=== PATIENT | male | born 1995 | race Caucasian/White ===

== ENCOUNTER 2019-01-15 13:10 | Emergency (ER) | payer MEDICAID, SELFPAY ==
[2019-01-15 13:12] VITALS: BP 158/99; PULSE 102; RESP 16; TEMP 36.7; O2SAT 100; BMI 25.7
--- NOTE | 2019-01-15 13:41 | ED.DCSUM_ITS ---
- ER Visit Summary Date of Service: 01/15/19 Chief Complaint: My girlfriend has herpes History of Present Illness: The patient is a 23 M no significant past medical or surgical history. Patient states a woman that he recently had sexual relations with reportedly had a herpes outbreak since that time and he wants to be evaluated. He denies any symptoms. No rash. He denies any prior STDs. Physical Examination: Appearing young male. No acute distress. H EENT exam normal. No sores. No mouth lesions. Neck nontender. Lungs clear to auscultation. Heart regular rhythm no murmur. Abdomen soft nontender. External exam is unremarkable. Circumcised male. No skin lesions. No herpes. No rash. No inguinal lymphadenopathy. No testicular swelling or tenderness. No masses. Extremities moves all 4. Back nontender. Neurologically is awake and alert. Test Results: None Emergency Department Course and Treatment: I explained to the patient at this time he has no outbreak and currently has no signs of acute herpes. Treatment Plan: Follow-up with a doctor as needed. Practice safe sex. Disposition: Discharge Impression: Evaluation for possible STD This note was generated with [employer] dictation software. It may contain incorrect words, spelling, and punctuation that were not noted in review of the chart prior to signing ED Disposition - Plan for ED Patient: Referrals: Care Physician,No Primary [Primary Care Provider] -
--- NOTE | 2019-01-15 13:44 | ED.DEP ---
ED Disposition - Plan for ED Patient: Disposition: Home or Assisted Living Instructions: Herpes Referrals: Kaveh Pearson MD [STAFF PHYSICIAN] - As Needed Additional Instructions: Currently has no signs of either herpes or other sexually transmitted diseases.
[2019-01-15 14:19] VITALS: RESP 16
== END 2019-01-15 14:00 | disposition home or self-care (01) ==
PROVIDERS: Emergency Provider Emergency Medicine
DX: Z20.2 Contact with and (suspected) exposure to infections with a predominantly sexual mode of transmission (principal); Z72.0 Tobacco use
CPT/HCPCS: 99282

== ENCOUNTER → 2019-07-29 | Outpatient (CLI) | payer SELFPAY ==
[2019-07-29 18:38] LABS: D-Dimer Quantitative (DVT/PE) < 0.27 FEU/ug/m (0.27-0.49)
--- OUTSIDE RECORDS SUMMARY | 2019-12-05 11:57 | XMS RPT_ITS | CCD ---
:1995 External Reference #:[id number] Author Organization [facility] Care Team Providers Name Role Phone Tucker Primary Care Provider Medications Medication Name Sig Date Prescriber Location amLODIPine amLODIPine (NORVASC) 10-21-2019 Mickey (Twin) Thuan [facility] 10 mg tablet ([id number]) Indications: Essential hypertension Take 1 tablet by mouth once daily. 30 tablet 1 10/21/2019 Active amLODIPine (NORVASC) 5 09-23-2019 - Mickey (Twin) Thuan [facility] mg tablet Indications: 10-21-2019 (70553) Essential hypertension Take 1 tablet by mouth once daily. 30 tablet 1 09/23/2019 10/21/2019 Discontinued Comment: Take 1 tablet by mouth once daily. busPIRone busPIRone (BUSPAR) 5 09-23-2019 - Mickey (Twin) [facility] mg tablet Indications: 10-21-2019 Thuan (4419 5) Anxiety Take 1 tablet by mouth twice daily. 60 tablet 5 10/21/2019 Active Comment: Take 1 tablet by mouth twice daily. carbamide peroxide carbamide peroxide 09-23-2019 Mickey (Ribber) [facility] (DEBROX) 6.5 % otic Thuan (35837) solution Indications: Impacted cerumen of left ear Use 5 Drops in the left ear twice daily. 15 mL 0 09/23/2019 Active Comment: Use 5 Drops in the left ear twice daily. Omeprazole omeprazole (PRILOSEC) 20 mg 09-23-2019 Mickey (Ribber) [facility] capsule Indications: Thuan (24788) gastroesophageal reflux disease , heartburn Take 1 capsule by mouth daily before breakfast. 30 capsule 2 09/23/2019 Active Comment: Take 1 capsule by mouth roula y before breakfast. Problems Active Problems Category Problem Name Status Date Location Anxiety disorders Anxiety Active [facility] ([id number]) Essential hypertension Essential Active [facility] hypertension (20168) Headache; including Migraine without Active 10-07-2017 - [facility] migraine aura, not refractory (56916) Other gastrointestinal Heartburn Active [facility] disorders (41383) Past or Other Problems Category Problem Name Status Date Location Other circulatory Elevated Completed 08-10-2019 - [facility] disease blood-pressure reading (4419 5) without diagnosis of hypertension Results Result Name Value Range Unit Interpretation Flag Date Location progress on 2019-10 PROGRESS HNO ID: [id number] Normal 11-11-2019 [facility] Author: Christie Solomon LPN [place] ([id number]) Service: ? Author Type: ? Type: Progress Notes Filed: 11/11/2019 11:07 AM Note Text: Manual Readin/92 Pulse: 58 BP Bhavik average: 120/73 P: 59 Repeat BP Check: 117/71 P59 #1 121/69 P59 #2 117/74 P60 #3 119/72 P59 #4 116/74 P57 #5 125/77 P60 #6 Reason for blood pressure check - Last BP elevated and Medic ation adjustment Patient is: Taking medication as prescribed Yes Took medication today Yes If no, date medication last taken N/A Experiencing side effects No BP was elevated at last appt 10/21/2019. Amlodipine was increa sed to 10mg daily at that time. Tolerating medication change well. Does report that he has some returning stomach irritation since stopping the Ome prazole. Did suggest Gaviscon tablets if needed. Denies any chest pain, s hortness of breath, dizziness, or headaches. Daily caffeine use. Current everyday tobacco use. Alert and oriented. Pt has been identified by name and birthdate: Yes Allergies reviewed: Yes Latex allergy: no. Medication - prescribed and OTC reviewed and updated: Yes Do you need any prescription refills prior to your next visi t: No Health Maintenance: Reviewed and not up to date and provider notified Patient advised to continue with current medications and wou ld be contacted if any further instructions after review by PCP. Christie Solomon LPN cnpn on 2019-11-11 CNPN Telephone (INTMWS) Normal 11-11-2019 [facility] ABEL KURTZ ([id number]) 1995 [facility] Date Time Provider Department ([id number]) 11/11/19 BRENDA RODRIGUEZ During your visit today, we recorded the following informati on about you: Christie Solomon LPN 11/11/2019 11:06 AM Signed Manual Readin/92 Pulse: 58 BP Bhavik average: 120/73 P: 59 Repeat BP Check: 117/71 P59 #1 121/69 P59 #2 117/74 P60 #3 119/72 P59 #4 116/74 P57 #5 125/77 P60 #6 Reason for blood pressure check - Last BP elevated and Medication adjustment Patient is: Taking medication as prescribed Yes Took medication today Yes If no, date medication last taken N/A Experiencing side effects No BP was elevated at last appt 10/21/2019. Amlodipin e was increased to 10mg daily at that time. Tolerating medication change well. Does report that he has some returning stomach irritation since stopping the Omeprazole. Did suggest Gaviscon tablets if needed. Denies any chest pain, shortness of breath, dizziness, or headaches. Daily caffeine use. Current everyda y tobacco use. Alert and oriented. Pt has been identified by name and birthdate: Yes Allergies reviewed: Yes Latex allergy: no. Medication - prescribed and OTC reviewed and updated: Yes Do you need any prescription refills prior to your next visi t: No Health Maintenance: Reviewed and not up to date and provider notified Patient advised to continue with current medications and would be contacted if any further instructions after review by PCP. Christie RODRIGUEZ MD 11/12/2019 2:04 PM Signed bp is good, cont the same medication. Mayelin Hsu Cma 11/12/2019 3:41 PM Signed Left message for patient to call office back and to ask to speak with a nurse. Mayelin Blanton LPN 11/15/2019 5:00 PM Signed Patient notified. Mendoza Blanton LPN Allergies As of Date: 11/11/2019 (No Known Allergies) Date Reviewed: 11/11/2019 Reviewed by: Christie Solomon LPN - Fully Assessed Reason for Visit: Blood Pressure Check [195] Prescriptions as of 11/11/2019 Sig: BUSPIRONE 5 MG TABLET Take 1 tablet by mouth twice * AMLODIPINE 10 MG TABLET Take 1 tablet by mouth once d* OMEPRAZOLE 20 MG CAPSULE,ALINA* Take 1 capsule by mouth daily * Patient not taking: Reported on 11/11/2019 DEBROX 6.5 % EAR DROPS Use 5 Drops in the left ear t* Problem List As Of Date 11/11/2019 Noted Resolved Migraine without aura, not intractable, with st*10/07/2017 Chronic migraine [G43.709] 12/15/2017 Chronic daily headache [R51] 12/15/2017 Elevated blood-pressure reading, without diagno*08/10/2019 Persistent headaches [R51] 08/10/2019 Encounter Status:Closed by MENDOZA BLANTON LPN on 11/15/19 cnnurse on [facility] Nurse Visit (FAMPWS) Normal 0 [place] [facility] ABEL KURTZ ([id number]) 1995 [facility] Date Time Provider Department ([id number]) 11/11/19 11:00 AM [place] NURSE FAMPWS During your visit today, we recorded the following informati on about you: Pulse Blood pressure 59/minute 120/73 Christie Solomon LPN 11/11/2019 11:07 AM Signed Manual Readin/92 Pulse: 58 BP Bhavik average: 120/73 P: 59 Repeat BP Check: 117/71 P59 #1 121/69 P59 #2 117/74 P60 #3 119/72 P59 #4 116/74 P57 #5 125/77 P60 #6 Reason for blood pressure check - Last BP elevated and Medication adjustment Patient is: Taking medication as prescribed Yes Took medication today Yes If no, date medication last taken N/A Experiencing side effects No BP was elevated at last appt 10/21/2019. Amlodipin e was increased to 10mg daily at that time. Tolerating medication change well. Does report that he has some returning stomach irritation since stopping the Omeprazole. Did suggest Gaviscon tablets if needed. Denies any chest pain, shortness of breath, dizziness, or headaches. Daily caffeine use. Current everyda y tobacco use. Alert and oriented. Pt has been identified by name and birthdate: Yes Allergies reviewed: Yes Latex allergy: no. Medication - prescribed and OTC reviewed and updated: Yes Do you need any prescription refills prior to your next visi t: No Health Maintenance: Reviewed and not up to date and provider notified Patient advised to continue with current medications and would be contacted if any further instructions after review by PCP. Christie Solomon LPN Referring Provider: MICKEY ALBARRAN ([employer]ET SAL[employer] SUPERVISOR) [[id number]] Allergies As of Date: 11/11/2019 (No Known Allergies) Date Reviewed: 11/11/2019 Reviewed by: Christie Solomon LPN - Fully Assessed Reason for Visit: Blood Pressure Check [195] Primary Visit Diagnosis:Hypertension, essential [I10] Prescriptions as of 11/11/2019 Sig: BUSPIRONE 5 MG TABLET Take 1 tablet by mouth twice * AMLODIPINE 10 MG TABLET Take 1 tablet by mouth once d* DEBROX 6.5 % EAR DROPS Use 5 Drops in the left ear t* OMEPRAZOLE 20 MG CAPSULE,ALINA* Take 1 capsule by mouth daily * Patient not taking: Reported on 11/11/2019 Problem List As Of Date 11/11/2019 Noted Resolved Migraine without aura, not intractable, with st*10/07/2017 Chronic migraine [G43.709] 12/15/2017 Chronic daily headache [R51] 12/15/2017 Elevated blood-pressure reading, without diagno*08/10/2019 Persistent headaches [R51] 08/10/2019 Encounter Status:Closed by CHRISTIE SOLOMON LPN on 11/11/19 progress on 2019-10 PROGRESS HNO ID: [id number] Normal 10-21-2019 [facility] Author: Mickey (Ribber) Thuan [place] ([id number]) Service: ? Author Type: Nurse Practitioner Type: Progress Notes Filed: 10/21/2019 3:25 PM Note Text: CC: Patient presents with: Follow Up: medication follow up HPI Abel Kurtz is a 23 year old male who presents today for r echeck BP and medication follow up. HTN: Compliant with and tolerating amlodipine. Denies headac hes, chest pain or edema. Cut out energy drinks. Watching salt intake. No regular exercise. BP remains mildly elevated today. Anxiety: Started on Buspar ~1 month ago after noting feeling anxious all day with intermittent chest pains and SOB. Today he reports symptoms are improved or resolved. No longer experiencing chest pain. Sle ep is described as good. GERD: During our last visit patient complained of abdominal burning, started on omeprazole. Today he reports symptoms have resolv ed with medication. Note he eliminated caffeine/energy drinks as wel l. REVIEW OF SYSTEMS General: no change in appetite HEENT: no frequent or significant headaches Cardiovascular: no chest pain, no chest pressure and no palp itations GI: No nausea, vomiting, or diarrhea and No heartburn or ref lux symptoms Psych: Positive for anxiety: see HPI See HPI PAST MEDICAL HISTORY Diagnosis Date - Chronic daily headache - HTN (hypertension) PAST SURGICAL HISTORY Procedure Laterality Date - NONE ALLERGIES Patient has no known allergies. MEDICATIONS amLODIPine (NORVASC) 5 mg tablet Take 1 tablet by mouth once daily. busPIRone (BUSPAR) 5 mg tablet Take 1 tablet by mouth twice daily. omeprazole (PRILOSEC) 20 mg capsule Take 1 capsule by mouth daily before breakfast. carbamide peroxide (DEBROX) 6.5 % otic solution Use 5 Drops in the left ear twice daily. FAMILY HISTORY Problem Relation Age of Onset - Headache Father Occasional headaches - Hypertension Father - Hypertension Mother - Headache Sister Jayden, IH with surgery - No Known Problems Brother - No Known Problems Maternal Grandmother - Hypertension Maternal Grandfather - No Known Problems Paternal Grandmother - No Known Problems Paternal Grandfather - No Known Problems Brother Social History Tobacco Use - Smoking status: Current Every Day Smoker Packs/day: 0.50 Types: Cigarettes - Smokeless tobacco: Never Used Substance Use Topics - Alcohol use: Yes Frequency: Monthly or less Drinks per session: 5 or 6 Binge frequency: Less than monthly Comment: RARE - Drug use: Yes Types: Marijuana Comment: MJ occasionally PHYSICAL EXAM BP (P) 140/84 Pulse (P) 80 Temp (P) 36.2 ?C (97.1 ?F) (T emporal) Resp (P) 16 Wt (P) 93 kg (205 lb) SpO2 (P) 98% BMI (P) 28.59 kg/m? General Appearance: well appearing, in no acute distress, al ert Pysch: mood and affect broad and appropriate Skin: Skin color, texture, turgor normal for age; Head: normocephalic, atraumatic Lungs: Lungs clear to auscultation. No wheezing, rhonchi, ra les. Heart: RRR without murmur, gallop, or rubs. No ectopy HPV VACCINE(1 - Male 2-dose series) due on 2004 BP CONTROLLED (<130/80) due on 10/29/2011 INFLUENZA(1) due on 10/19/2019 DTAP,TDAP,TD(1 - Tdap) due on 09/22/2020 ONE PNEUMOVAX PRIOR TO AGE 65 due on 09/22/2020 ANNUAL PCP TEAM CHRONIC DISEASE VISIT due on 09/22/2020 MENINGOCOCCAL CONJUGATE Completed HEPATITIS C SCREENING Completed HIV SCREENING Completed ASSESSMENT/PLAN: 1. Essential hypertension - ICD9: 401.9, ICD10: I10 (primary diagnosis) - suboptimal control - Increase amlodipine (Norvasc) - Encouraged dietary sodium restriction/DASH diet - Recommended regular aerobic exercise. - Follow up in 1 month for BP recheck. - Goal of BP <130/80 - Recommended no refined sugar, low refined starch, healthy oil intake (olive oil), healthy protein (fish) along the lines of the [place] edit[place] diet. - AMLODIPINE 10 MG TABLET 2. Heartburn - ICD9: 787.1, ICD10: R12 - Symptoms resolved with current treatment - Continue omeprazole for total of 3 months, contact office for recurrent symptoms 3. Anxiety - ICD9: 300.00, ICD10: F41.9 - Stable - Continue current medications - Follow up in 1 year, sooner for new or worsening symptoms - BUSPIRONE 5 MG TABLET Prescription instructions reviewed with patient as applicabl e. Potential red flag symptoms discussed with the patient. Reviewed appro priate action plan to take if red flag symptoms occur. Patient agreeable t o treatment plan. SWAPNA Alva on 2019-10-21 CNOV Office Visit (INTMWS) Normal 10-21-19 20 [place] [facility] ABEL KURTZ ([id number]) 1995 [place] Date Time Provider Department ([id number]) 10/21/19 3:00 PM MICKEY ALBARRAN (T[employer]ET SALES SUPERVISOR) INTMWS During your visit today, we recorded the following informati on about you: Blood pressure 130/90 Mickey Albarran APRN.CNP 10/21/2019 3:25 PM Signed CC: Patient presents with: Follow Up: medication follow up HPI Abel Sharee Jerardo is a 23 year old male who presents today for r [facility] BP and medication follow up. HTN: Compliant with and tolerating amlod ipine. Denies headaches, chest pain or edema. Cut out energy drinks. Watching salt intake. No reg ular exercise. BP remains mildly elevated today. Anxiety: Started on Buspar ~1 month ago after noting f eeling anxious all day with intermittent chest pains and SOB. Today he reports symptoms are improved or resolved. No longer experiencing chest pain. Sleep is d escribed as good. GERD: During our last visit patient complained of abdominal burning, started on omeprazole. Today he reports symptoms have resolved wi th medication. Note he eliminated caffeine/energy drinks as well. REVIEW OF SYSTEMS General: no change in appetite HEENT: no frequent or significant headaches Cardiovascular: no chest pain, no chest pressure and no palp itations GI: No nausea, vomiting, or diarrhea and No heartburn or ref lux symptoms Psych: Positive for anxiety: see HPI See HPI PAST MEDICAL HISTORY Diagnosis Date - Chronic daily headache - HTN (hypertension) PAST SURGICAL HISTORY Procedure Laterality Date - NONE ALLERGIES Patient has no known allergies. MEDICATIONS amLODIPine (NORVASC) 5 mg tablet Take 1 tablet by mouth once daily. busPIRone (BUSPAR) 5 mg tablet Take 1 tablet by mouth twice daily. omeprazole (PRILOSEC) 20 mg capsule Take 1 capsule by mouth daily before breakfast. carbamide peroxide (DEBROX) 6.5 % otic solution Use 5 Drop s in the left ear twice daily. FAMILY HISTORY Problem Relation Age of Onset - Headache Father Occasional headaches - Hypertension Father - Hypertension Mother - Headache Sister Jayden IH with surgery - No Known Problems Brother - No Known Problems Maternal Grandmother - Hypertension Maternal Grandfather - No Known Problems Paternal Grandmother - No Known Problems Paternal Grandfather - No Known Problems Brother Social History Tobacco Use - Smoking status: Current Every Day Smoker Packs/day: 0.50 Types: Cigarettes - Smokeless tobacco: Never Used Substance Use Topics - Alcohol use: Yes Frequency: Monthly or less Drinks per session: 5 or 6 Binge frequency: Less than monthly Comment: RARE - Drug use: Yes Types: Marijuana Comment: MJ occasionally PHYSICAL EXAM BP (P) 140/84 Pulse (P) 80 Temp (P) 36.2 ?C (97.1 ?F) (Temporal) Resp (P) 16 Wt (P) 93 kg (205 lb) SpO2 (P) 98% BMI (P) 28.5 9 kg/m? General Appearance: well appearing, in no acute distress, al ert Pysch: mood and affect broad and appropriate Skin: Skin color, texture, turgor normal for age; Head: normocephalic, atraumatic Lungs: Lungs clear to auscultation. No wheezing, rhonchi, ra les. Heart: RRR without murmur, gallop, or rubs. No ectopy HPV VACCINE(1 - Male 2-dose series) due on 2004 BP CONTROLLED (<130/80) due on 10/29/2011 INFLUENZA(1) due on 10/19/2019 DTAP,TDAP,TD(1 - Tdap) due on 09/22/2020 ONE PNEUMOVAX PRIOR TO AGE 65 due on 09/22/2020 ANNUAL PCP TEAM CHRONIC DISEASE VISIT due on 09/22/2020 MENINGOCOCCAL CONJUGATE Completed HEPATITIS C SCREENING Completed HIV SCREENING Completed ASSESSMENT/PLAN: 1. Essential hypertension - ICD9: 401.9, ICD10: I10 (primary diagnosis) - suboptimal control - Increase amlodipine (Norvasc) - Encouraged dietary sodium restriction/DASH diet - Recommended regular aerobic exercise. - Follow up in 1 month for BP recheck. - Goal of BP <130/80 - Recommended no refined sugar, low refined star ch, healthy oil intake (olive oil), healthy protein (fish) along the lines of the Mediterr anean diet. - AMLODIPINE 10 MG TABLET 2. Heartburn - ICD9: 787.1, ICD10: R12 - Symptoms resolved with current treatment - Continue omeprazole for total of 3 months, contact office for recurrent symptoms 3. Anxiety - ICD9: 300.00, ICD10: F41.9 - Stable - Continue current medications - Follow up in 1 year, sooner for new or worsening symptoms - BUSPIRONE 5 MG TABLET Prescription instructions reviewed with patient as madie licable. Potential red flag symptoms discussed with the patient. Review ed appropriate action plan to take if red flag symptoms occur. Patient agreeable to treatm ent plan. Mickey Albarran APRN.TICKET SALES SUPERVISOR Referring Provider: MICKEY ALBARRAN ([facility]) [[id number]] Allergies As of Date: 10/21/2019 (No Known Allergies) Date Reviewed: 10/21/2019 Reviewed by: Shannan Helm Ma - Fully Assessed Reason for Visit: Follow Up [171] Cmt: medication follow up Primary Visit Diagnosis:Essential hypertension [I10] Other Visit Diagnoses:Heartburn [R12] Anxiety [F41.9] Order(s):busPIRone (BUSPAR) 5 mg tabletTake 1 tablet by mout h twice daily.Disp: 60 tabletRfl: 5 amLODIPine (NORVASC) 10 mg tabletTake 1 tablet by mouth once daily.Disp: 30 tabletRfl: 1 Prescriptions as of 10/21/2019 Sig: BUSPIRONE 5 MG TABLET Take 1 tablet by mouth twice * AMLODIPINE 10 MG TABLET Take 1 tablet by mouth once d* OMEPRAZOLE 20 MG CAPSULE,ALINA* Take 1 capsule by mouth daily * DEBROX 6.5 % EAR DROPS Use 5 Drops in the left ear t* Problem List As Of Date 10/21/2019 Noted Resolved Migraine without aura, not intractable, with st*10/07/2017 Chronic migraine [G43.709] 12/15/2017 Chronic daily headache [R51] 12/15/2017 Elevated blood-pressure reading, without diagno*08/10/2019 Persistent headaches [R51] 08/10/2019 Prescriptions ordered this encounter Disp Refills Start End BUSPIRONE 5 MG TABLET 60 t* 5 10/21/2019 Route: ORAL Sig: Take 1 tablet by mouth twice daily. AMLODIPINE 10 MG TABLET 30 t* 1 10/21/2019 Route: ORAL Sig: Take 1 tablet by mouth once daily. Medications Discontinued During This Encounter Prescriptions - amLODIPine (NORVASC) 5 mg tablet (Discontinued) Take 1 tablet by mouth once daily. - busPIRone (BUSPAR) 5 mg tablet (Discontinued) Take 1 tablet by mouth twice daily. Follow-up and Disposition History Recorded Encounter Status:Closed by MICKEY ALBARRAN CNP on 10/21/19 progress on 2019-09 PROGRESS HNO ID: [id number] Normal 09-23-2019 [facility] Author: Mickey (Twin) Thuan [place] ([id number]) Service: ? Author Type: Nurse Practitioner Type: Progress Notes Filed: 09/23/2019 2:55 PM Note Text: CC: Patient presents with: Establish Care: Establishing Care HPI Abel Kurtz is a 23 year old male who presents today to [facility]. Previous PCP: none Medical hx significant for HTN. HTN: started on amlodipine ~5-6 weeks ago. Denies new/worsen ing headaches, chest pain, palpitations, SOB. Watching diet for sodium. No structured exercise. Weight stable. Does not check BP at home. Reports symptoms of anxiety since June. Feeling anxious every day, can be all day with intermittent CP and SOB. Notes relationship str essor and money stressors back in June, no longer an issue. No SI/HI. N o family hx. Last eye exam: Unknown. He was prescribed glasses/contacts b ut never started wearing Last dental exam: Unknown. HM: Tetanus at [facility]. REVIEW OF SYSTEMS General: no fevers, no chills, no recurrent infections, no c hange in energy and no significant changes in weight HEENT: no frequent or significant headaches, no visual huff es, no sinus or nasal problems. Hearing: feels hearing has declined sligh tly- doesn't Neck: no lumps, no pain and no swelling Respiratory: no cough, no wheezing, no shortness of breath Cardiovascular: no chest pain, no chest pressure, no palpita tions and no swelling GI: No nausea, vomiting, or diarrhea and lower abdominal bur margy Hematologic/Lymph: Negative for prolonged bleeding, bruising easily or swollen nodes Neurologic: No headache, weakness, numbness, tingling, verti go, dizziness, syncope. See HPI PAST MEDICAL HISTORY Diagnosis Date - Chronic daily headache PAST SURGICAL HISTORY Procedure Laterality Date - NONE ALLERGIES Patient has no known allergies. MEDICATIONS amLODIPine (NORVASC) 2.5 mg tablet Take 1 tablet by mouth on ce daily. FAMILY HISTORY Problem Relation Age of Onset - Headache Father Occasional headaches - Hypertension Father - Hypertension Mother - Headache Sister Jayden IH - No Known Problems Brother - No Known Problems Maternal Grandmother - No Known Problems Maternal Grandfather - No Known Problems Paternal Grandmother - No Known Problems Paternal Grandfather - No Known Problems Brother Social History Tobacco Use - Smoking status: Current Every Day Smoker Packs/day: 0.50 Types: Cigarettes - Smokeless tobacco: Never Used Substance Use Topics - Alcohol use: Yes Frequency: Monthly or less Drinks per session: 5 or 6 Binge frequency: Less than monthly Comment: RARE - Drug use: Yes Types: Marijuana Comment: MJ occasionally PHYSICAL EXAM BP 132/78 Pulse 78 Temp 36.6 ?C (97.8 ?F) (Temporal) R ale 16 Wt 89.8 kg (198 lb) SpO2 99% BMI 27.62 kg/m? General Appearance: well appearing, in no acute distress, al ert Pysch: mood and affect broad and appropriate Skin: Skin color, texture, turgor normal for age; Head: normocephalic, atraumatic Eyes: PERRLA, EOM's intact, conjunctiva pink and moist, no i cterus, sclera white, non-injected Ears: external ears normal to inspection and palpation, abilio ls clear, Right tympanic membrane normal. Left TM obscured by large am ount of cerumen Neck: Thyroid normal size and symmetric without palpable nod ules, No adenopathy Lungs: Lungs clear to auscultation. No wheezing, rhonchi, ra les. Heart: RRR without murmur, gallop, or rubs. No ectopy Left chest: +tenderness of left lateral ribs and anterior ri bs 8-10. Painless ROM. Skin intact Abdomen: Abdomen soft, Bowel sounds normal. No masses, organ omegaly, Positive findings: tenderness mild LLQ Bilateral Lower Extremities: no edema HPV VACCINE(1 - Male 2-dose series) due on 2004 HEPATITIS C SCREENING due on 10/29/2011 HIV SCREENING due on 10/29/2011 DTAP,TDAP,TD(1 - Tdap) due on 2012 ONE PNEUMOVAX PRIOR TO AGE 65 due on 2012 INFLUENZA(1) due on 10/19/2019 ASSESSMENT/PLAN: 1. Encounter for medical examination to establish care - ICD 9: V70.9, ICD10: Z00.00 (primary diagnosis) - Establishing with today - Recommended regular aerobic exercise. - Vaccination(s) recommended today: Prevnar, patient wishes to defer. Indicates needles/injections cause severe anxiety/panic and vomiting. - Follow up for annual exam in one year. - Strongly recommend smoking cessation 2. Heartburn - ICD9: 787.1, ICD10: R12 - Lifestyle modifications reviewed including no eating 2-3 h ours before bed, head of bed elevation, limiting caffeine, smoking cessa tion - Begin Prilosec daily x3 months - Follow up in 1 month - OMEPRAZOLE 20 MG CAPSULE,DELAYED RELEASE 3. Essential hypertension - ICD9: 401.9, ICD10: I10 - suboptimal control - Increase amlodipine (Norvasc) - Encouraged dietary sodium restriction/DASH diet - Recommended regular aerobic exercise. - Follow up in 1 month for BP recheck. - Goal of BP <130/80 - Patient counselled on smoking cessation. - AMLODIPINE 5 MG TABLET 4. Impacted cerumen of left ear - ICD9: 380.4, ICD10: H61.22 - Follow up in 2 weeks if no improvement - DEBROX 6.5 % EAR DROPS 5. Anxiety - ICD9: 300.00, ICD10: F41.9 - Discussed treatment options including medication and couns eling - Begin Bupsar as prescribed - Strongly recommend smoking cessation - BUSPIRONE 5 MG TABLET 6. Costochondritis - ICD9: 733.6, ICD10: M94.0 - NSAIDs PRN and ice to left ribs - Follow up in 1 month as planned 7. LLQ pain - ICD9: 789.04, ICD10: R10.32 Etiology unclear Differential Diagnosis includes GERD, PUD and Constipation. Previously underwent work up July 2019 which was unremarkable - Consider CT scan if no improvement - Begin treatment with Prilosec 20 mg QD - Follow up in 1 months or sooner if worsening of symptoms 8. Tobacco abuse - ICD9: 305.1, ICD10: Z72.0 - Cessation encouraged. - Physiologic and physical aspects of tobacco addiction as w ell as strategies for quitting were discussed. - Counseling was given focusing on the harmful effects of th is addiction especially given the patient's medical condition(s) which wi ll be worsened because of the chemicals in tobacco. Mickey Albarran APRN.[employer] SALES SUPERVISOR Prescription instructions reviewed with patient as applicabl e. Potential red flag symptoms discussed with the patient. Reviewed appro priate action plan to take if red flag symptoms occur. Patient agreeable t o treatment plan. cnov on 2019-09-23 CNOV Office Visit (INTMWS) Normal 09-23-[address] [place] [address] Clinic ABEL KURTZ ([id number]) 1995 [facility] Date Time Provider Department ([id number]) 09/23/19 1:40 PM MICKEY ALBARRAN ([facility]) INTMWS During your visit today, we recorded the following informati on about you: Temperature Pulse Respiration Blood pressure 97.8 degrees 78/minute 16/minute 132/78 Weight 89.8 kg Mickey Albarran APRN.CNP 09/23/2019 2:55 PM Signed CC: Patient presents with: Establish Care: Establishing Care [facility] Abel Kurtz is a 23 year old male who presents today to [facility]. Previous PCP: none Medical hx significant for HTN. HTN: started on amlodipine ~5-6 weeks ago. Denies new/worsen ing headaches, chest pain, palpitations, SOB. Watching diet for sodium. No structured exercise. Weight stable. Does not check BP at home. Reports symptoms of anxiety since June. Feeling anxious michi ry, can be all day with intermittent CP and SOB. Notes relationship stresso r and money stressors back in June, no longer an issue. No SI/HI. No fami ly hx. Last eye exam: Unknown. He was prescribed glasses/cont acts but never started wearing Last dental exam: Unknown. HM: Tetanus at [facility]. REVIEW OF SYSTEMS General: no fevers, no chill s, no recurrent infections, no change in energy and no significant changes in weight HEENT: no frequent or significant headaches, no visual mercy nges, no sinus or nasal problems. Hearing: feels hearing has declined slightly - doesn't Neck: no lumps, no pain and no swelling Respiratory: no cough, no wheezing, no shortness of breath Cardiovascular: no chest pain, no chest pressure, no palpita tions and no swelling GI: No nausea, vomiting, or diarrhea and lower abdominal bur margy Hematologic/Lymph: Negative for prolonge d bleeding, bruising easily or swollen nodes Neurologic: No headache, weakness, numbness, tingling, verti go, dizziness, syncope. See HPI PAST MEDICAL HISTORY Diagnosis Date - Chronic daily headache PAST SURGICAL HISTORY Procedure Laterality Date - NONE ALLERGIES Patient has no known allergies. MEDICATIONS amLODIPine (NORVASC) 2.5 mg tablet Take 1 tablet by mouth on ce daily. FAMILY HISTORY Problem Relation Age of Onset - Headache Father Occasional headaches - Hypertension Father - Hypertension Mother - Headache Sister Jayden IH - No Known Problems Brother - No Known Problems Maternal Grandmother - No Known Problems Maternal Grandfather - No Known Problems Paternal Grandmother - No Known Problems Paternal Grandfather - No Known Problems Brother Social History Tobacco Use - Smoking status: Current Every Day Smoker Packs/day: 0.50 Types: Cigarettes - Smokeless tobacco: Never Used Substance Use Topics - Alcohol use: Yes Frequency: Monthly or less Drinks per session: 5 or 6 Binge frequency: Less than monthly Comment: RARE - Drug use: Yes Types: Marijuana Comment: MJ occasionally PHYSICAL EXAM BP 132/78 Pulse 78 Temp 36.6 ?C (97.8 ?F) (Temporal) R ale 16 Wt 89.8 kg (198 lb) SpO2 99% BMI 27.62 kg/m? General Appearance: well appearing, in no acute distress, al ert Pysch: mood and affect broad and appropriate Skin: Skin color, texture, turgor normal for age; Head: normocephalic, atraumatic Eyes: PERRLA, EOM's intact, conjunctiva pink and moist, no i cterus, sclera white, non-injected Ears: external ears normal to inspection and palpation, ca nals clear, Right tympanic membrane normal. Left TM obscured by large amount o f cerumen Neck: Thyroid normal size an d symmetric without palpable nodules, No adenopathy Lungs: Lungs clear to auscultation. No wheezing, rhonchi, ra les. Heart: RRR without murmur, gallop, or rubs. No ectopy Left chest: +tenderness of left lateral ribs and anterior ribs 8-10. Painless ROM. Skin intact Abdomen: Abdomen soft, Bowel sounds normal. No m asses, organomegaly, Positive findings: tenderness mild LLQ Bilateral Lower Extremities: no edema HPV VACCINE(1 - Male 2-dose series) due on 2004 HEPATITIS C SCREENING due on 10/29/2011 HIV SCREENING due on 10/29/2011 DTAP,TDAP,TD(1 - Tdap) due on 2012 ONE PNEUMOVAX PRIOR TO AGE 65 due on 2012 INFLUENZA(1) due on 10/19/2019 ASSESSMENT/PLAN: 1. Encounter for medical examination to establish care - ICD9: V70.9, ICD10: Z00.00 (primary diagnosis) - Establishing with today - Recommended regular aerobic exercise. - Vaccination(s) recommended today: Prevnar, patient wishes to defer. Indicates needles/injections cause severe anxiety/panic and vomiting. - Follow up for annual exam in one year. - Strongly recommend smoking cessation 2. Heartburn - ICD9: 787.1, ICD10: R12 - Lifestyle modifications reviewed including no eating 2-3 hours before bed, head of bed elevation, limiting caffeine, smoking cessation - Begin Prilosec daily x3 months - Follow up in 1 month - OMEPRAZOLE 20 MG CAPSULE,DELAYED RELEASE 3. Essential hypertension - ICD9: 401.9, ICD10: I10 - suboptimal control - Increase amlodipine (Norvasc) - Encouraged dietary sodium restriction/DASH diet - Recommended regular aerobic exercise. - Follow up in 1 month for BP recheck. - Goal of BP <130/80 - Patient counselled on smoking cessation. - AMLODIPINE 5 MG TABLET 4. Impacted cerumen of left ear - ICD9: 380.4, ICD10: H61.22 - Follow up in 2 weeks if no improvement - DEBROX 6.5 % EAR DROPS 5. Anxiety - ICD9: 300.00, ICD10: F41.9 - Discussed treatment options including medication and couns eling - Begin Bupsar as prescribed - Strongly recommend smoking cessation - BUSPIRONE 5 MG TABLET 6. Costochondritis - ICD9: 733.6, ICD10: M94.0 - NSAIDs PRN and ice to left ribs - Follow up in 1 month as planned 7. LLQ pain - ICD9: 789.04, ICD10: R10.32 Etiology unclear Differential Diagnosis includes GERD, PUD and Constipation. Previously underwent work up July 2019 which was unremarkable - Consider CT scan if no improvement - Begin treatment with Prilosec 20 mg QD - Follow up in 1 months or sooner if worsening of symptoms 8. Tobacco abuse - ICD9: 305.1, ICD10: Z72.0 - Cessation encouraged. - Physiologic and physical aspects of tobacco ad diction as well as strategies for quitting were discussed. - Counseling was given focusing on the harmful effects of th is addiction especially given the patient's medical condition(s) which wi ll be worsened because of the chemicals in tobacco. Mickey Albarran APRN.[facility] Prescription instructions reviewed with patient as madie licable. Potential red flag symptoms discussed with the patient. Review ed appropriate action plan to take if red flag symptoms occur. Patient agreeable to treatm ent plan. Referring Provider: TAISHA GALEANO ([facility]) [[id number]] Allergies As of Date: 09/23/2019 (No Known Allergies) Date Reviewed: 09/23/2019 Reviewed by: Shannan Helm Ma - Fully Assessed Reason for Visit: Establish Care [42] Cmt: Establishing Care Primary Visit Diagnosis:Encounter for medical examination to establish care [Z00.00] Other Visit Diagnoses:Heartburn [R12] Essential hypertension [I10] Impacted cerumen of left ear [H61.22] Anxiety [F41.9] Costochondritis [M94.0] LLQ pain [R10.32] Tobacco abuse [Z72.0] Order(s):amLODIPine (NORVASC) 5 mg tabletTake 1 tablet by mo uth once daily.Disp: 30 tabletRfl: 1 busPIRone (BUSPAR) 5 mg tabletTake 1 tablet by mouth twice daily.Disp: 60 tabletRfl: 2 omeprazole (PRILOSEC) 20 mg capsuleTake 1 capsule by mouth d aily before breakfast.Disp: 30 capsuleRfl: 2 carbamide peroxide (DEBROX) 6.5 % otic solutionUse 5 Drops i n the left ear twice daily.Disp: 15 mLRfl: 0 Prescriptions as of 09/23/2019 Sig: AMLODIPINE 5 MG TABLET Take 1 tablet by mouth once d* BUSPIRONE 5 MG TABLET Take 1 tablet by mouth twice * OMEPRAZOLE 20 MG CAPSULE,ALINA* Take 1 capsule by mouth daily * DEBROX 6.5 % EAR DROPS Use 5 Drops in the left ear t* Problem List As Of Date 09/23/2019 Noted Resolved Migraine without aura, not intractable, with st*10/07/2017 Chronic migraine [G43.709] 12/15/2017 Chronic daily headache [R51] 12/15/2017 Elevated blood-pressure reading, without diagno*08/10/2019 Persistent headaches [R51] 08/10/2019 Prescriptions ordered this encounter Disp Refills Start End AMLODIPINE 5 MG TABLET 30 t* 1 09/23/2019 Route: ORAL Sig: Take 1 tablet by mouth once daily. BUSPIRONE 5 MG TABLET 60 t* 2 09/23/2019 Route: ORAL Sig: Take 1 tablet by mouth twice daily. OMEPRAZOLE 20 MG CAPSULE,DELAYED REL* 30 c* 2 09/23/2019 Route: ORAL Sig: Take 1 capsule by mouth daily before breakfast. DEBROX 6.5 % EAR DROPS 15 mL 0 09/23/2019 Route: LEFT EAR Sig: Use 5 Drops in the left ear twice daily. Medications Discontinued During This Encounter Prescriptions - amLODIPine (NORVASC) 2.5 mg tablet (Discontinued) Take 1 tablet by mouth once daily. Disposition: Return in about 4 weeks (around 10/21/2019). Follow-up and Disposition History Recorded Encounter Status:Closed by MICKEY ALBARRAN CNP on 09/23/19 obsolete on 2019-08 OBSOLETE Refill (INTMWS) Normal 08-31-2019 [facility] ABEL KURTZ ([id number]) 1995 [facility] Date Time Provider Department ([id number]) 08/31/19 TAISHA GALEANO ([facility]) INTMWS During your visit today, we recorded the following informati on about you: John Montoya Pss 08/31/2019 12:57 PM Signed Patient has been identified by name and date of : Yes Last office visit in this department: 08/10/2019 RX INSTRUCTIONS: Patient aware RX will be sent to pharmacy. No need to notify patient. Patient phones requesting refills as follows: Pending Prescriptions Disp Refills AMLODIPINE 2.5 MG TABLET 30 tablet 0 Sig: Take 1 tablet by mouth once daily. LISA: No Please review and advise. John Montoya Pss Allergies As of Date: 08/31/2019 (No Known Allergies) Date Reviewed: 08/10/2019 Reviewed by: Mayelin Hsu Quality Assurance Manager - Fully Assessed Reason for Visit: Refill Request [94] Order(s):amLODIPine (NORVASC) 2.5 mg tabletTake 1 tablet by mouth once daily.Disp: 30 tabletRfl: 2 Prescriptions as of 08/31/2019 Sig: AMLODIPINE 2.5 MG TABLET Take 1 tablet by mouth once d* Problem List As Of Date 08/31/2019 Noted Resolved Migraine without aura, not intractable, with st*10/07/2017 Chronic migraine [G43.709] 12/15/2017 Chronic daily headache [R51] 12/15/2017 Elevated blood-pressure reading, without diagno*08/10/2019 Persistent headaches [R51] 08/10/2019 Prescriptions ordered this encounter Disp Refills Start End AMLODIPINE 2.5 MG TABLET 30 t* 2 08/31/2019 Route: ORAL Sig: Take 1 tablet by mouth once daily. Medications Discontinued During This Encounter amLODIPine (NORVASC) 2.5 mg tablet 30 t* 0 08/10/2019 08/31/19 Class: Med Update Route: ORAL Sig: Take 1 tablet by mouth once daily. Disc: Reason for discontinue is not on file. Encounter Status:Closed by TAISHA GALEANO CNP on 08/31/19 cnpn on 2019-08-11 CNPN Telephone (INTMWS) Normal 08-11-2019 [place] [facility] ABEL KURTZ ([id number]) 1995 [facility] Date Time Provider Department () 08/11/19 TAISHA GALEANO) INTMWS During your visit today, we recorded the following informati on about you: Mayelin Hsu Cma 08/11/2019 2:29 PM Signed ----- Message from Taisha Salazar) Fidel sent at 08/11/2019 2:28 PM EDT ----- Labs were all normal SWAPNA Toro Cma 08/11/2019 2:33 PM Signed Patient is notified of all information and verbalizes unders tanding. Allergies As of Date: 08/11/2019 (No Known Allergies) Date Reviewed: 08/10/2019 Reviewed by: Mayelin Hsu Cma - Fully Assessed Reason for Visit: Results [95] Prescriptions as of 08/11/2019 Sig: AMLODIPINE 2.5 MG TABLET Take 1 tablet by mouth once d* METHYLPREDNISOLONE 4 MG TABLE* Follow dosing instructions, t * Problem List As Of Date 08/11/2019 Noted Resolved Migraine without aura, not intractable, with st*10/07/2017 Chronic migraine [G43.709] 12/15/2017 Chronic daily headache [R51] 12/15/2017 Elevated blood-pressure reading, without diagno*08/10/2019 Persistent headaches [R51] 08/10/2019 Encounter Status:Closed by MAYELIN HSU CMA on 08/11/19 urinalysis with microscopic on 2019-08-10 Bilirubin, Urine Negative Negative Normal 08-10-2019 Cl [facility] ([id number]) Comment: Performed By: #### UAWMIC ## ##[facility] [address] [place], [place] [phone]- [phone] Clarity (U) Clear Clear Normal 08-10-2019 [facility] ([id number]) Comment: Performed By: #### UAWMIC ## ##[facility], [place] [phone]- [phone] Color (U) Light Yellow Yellow Critically abnormal 020 [facility] ([id number]) Comment: Performed By: #### UAWMIC ## ##[facility], [place] [phone]- [phone] Comments SEE COMMENT Normal 08-10-2019 [facility] ([id number]) Comment: Result Comment: N/A Performed By: #### UAWMIC ## ##[place] [address], [place] [phone]- [phone] Epithelial cells LM.HPF SEE COMMENT Normal 07-19 [facility] (Urine sed) [#/Area] [place] ([id number]) Comment: Result Comment: Few Squamous Epithelial Cells Performed By: #### UAWMIC ## ##[place] [address] [place] [phone]- [phone] Glucose Ql (U) Negative Negative Normal 08-10-2019 [facility] ([id number]) Comment: Performed By: #### UAWMIC ## ##[place] [address], [place] [phone]- [phone] Hemoglobin/Blood,Ur Negative Negative Normal 08-10-2019 [facility] ([id number]) Comment: Performed By: #### UAWMIC ## ##[facility] [address], [place] [phone]- [phone] Ketones Ql (U) Negative Negative Normal 08-10-2019 [facility] ([id number]) Comment: Performed By: #### UAWMIC ## ##[facility], [place] [phone]- [phone] Leukest Negative Negative Normal 08-10-2019 [facility] ([id number]) Comment: Performed By: #### UAWMIC ## ##[place] [id number], [place] [phone]- [phone] Nitrite Ql (U) Negative Negative Normal 08-10-2019 [facility] ([id number]) Comment: Performed By: #### UAWMIC ## ##[place] [address], [place] [phone]- [phone] pH (Bld) 7.0 5.0-8.0 Normal 08-10-2019 [facility] ([id number]) Comment: Performed By: #### UAWMIC ## ##[place] [address], [place] [phone]- [phone] Protein (U) [Mass/Vol] Negative Negative mg/dL Normal 020 [facility] ([id number]) Comment: Performed By: #### UAWMIC ## ##[place] [address], [place] [phone] RBC (U) [#/Vol] 0-3 0-3 Normal 08-10-2019 [facility] ([id number]) Comment: Performed By: #### UAWMIC ## ##[place] [address], [place] [phone]- [phone] Specific [place], Ur 1.015 1.005-1.030 Normal 020 [facility] ([id number]) Comment: Performed By: #### UAWMIC ## ##[place] [address], [place] [phone]- [phone] Urine Magno Comment SEE COMMENT Normal 08-10-2019 [facility] ([id number]) Comment: Result Comment: N/A Performed By: #### UAWMIC ## ##[place] [address], [place] [phone]- [phone] Urobilinogen Qn (U) Negative Negative Normal 08-10-2019 [facility] ([id number]) Comment: Performed By: #### UAWMIC ## ##[place] [address], [place] [phone]- [phone] WBC (Bld) [#/Vol] 0-5 0-5 Normal 08-10-2019 C [facility] ([id number]) Comment: Performed By: #### UAWMIC ## ##[facility] [address] [place], [place] [phone]- [phone] tsh on 2019-08-10 TSH Qn 0.980 0.270-4.200 uU/mL Normal 08-10-2019 [facility] ([id number]) Comment: Performed By: #### TSH, HPYL RI ####[facility] [address] [place], [place] [phone]- [phone] progress on 2019-07 PROGRESS HNO ID: [id number] Normal 08-10-2019 [facility] Author: Taisha Salazar) [facility] ([id number]) Service: ? Author Type: Nurse Practitioner Type: Progress Notes Filed: 08/10/2019 4:09 PM Note Text: CC Patient presents with: ER F/U: headache, elevated BP HPI Abel Kurtz is a 23 year old male who presents to the [facility] for above. Facility: [facility] Date of visit: 08/05/19 Reason for visit: headache, facial pressure and tingling in hands that occurred with bowel movement. Hospital course: Head CT negative. CBC and CMP unremarkable. BP was elevated, headache attributed to this. Diagnosis: hypertension- new Discharge: discharged home on norvasc 2.5 mg daily Current symptoms: Continues to have headaches almost daily b ut not as intense or lasting as long. Usually headaches start in the n camila with ROM and go up the back of his head. Denies neck pain other than with ROM. No history of migraines or headaches. No new or worsening sympt oms since he was in the ER. Treats with ibuprofen with moderate relief. Denies history of hypertension but both his mother and fathe r have it. Sister has a history of betsy malformation and migraines. Vin henderson does not have a PCP but when he comes in for acute visits BP is u sually elevated. Taking Norvasc as directed, denies side effects Home BP's: No Denies: chest pain, palpitations, dyspnea, peripheral edema, fatigue, flushing, sweats, nausea Last 4 Encounter BP Readings: Date: BP: 08/10/2019 150/90 07/29/2019 146/94 07/29/2019 128/84 01/22/2019 140/100 Last 3 Encounter Wt Readings: Date: Wt: 08/10/2019 89.8 kg (198 lb) 07/29/2019 89.4 kg (197 lb) 07/29/2019 90.4 kg (199 lb 6.4 oz) Exercise: denies regular aerobic exercise. Diet: Watch for salt, fat, cholesterol: No. Caffeine: 1 serv ing daily Water intake: adequate Alcohol intake: no . Smoking: trying to quit, down to 1/4 PPD now Frequent NSAID use: No Decongestants: No Thyroid disorders? No Sleep disorders/snoring? No REVIEW OF SYSTEMS See HPI PAST MEDICAL HISTORY Diagnosis Date - Chronic daily headache PAST SURGICAL HISTORY Procedure Laterality Date - NONE ALLERGIES Patient has no known allergies. MEDICATIONS amLODIPine (NORVASC) 2.5 mg tablet Take 1 tablet by mouth on ce daily. methylPREDNISolone (MEDROL, LAWRENCE,) 4 mg Dose-Pack Follow dosi ng instructions, take with food. FAMILY HISTORY Problem Relation Age of Onset - Headache Father Occasional headaches - Hypertension Father - Hypertension Mother - Headache Sister Jayden, IH - No Known Problems Brother - No Known Problems Maternal Grandmother - No Known Problems Maternal Grandfather - No Known Problems Paternal Grandmother - No Known Problems Paternal Grandfather - No Known Problems Brother Social History Tobacco Use - Smoking status: Current Every Day Smoker Packs/day: 0.50 Types: Cigarettes - Smokeless tobacco: Never Used Substance Use Topics - Alcohol use: Yes Frequency: Monthly or less Drinks per session: 5 or 6 Binge frequency: Less than monthly Comment: RARE - Drug use: Yes Types: Marijuana Comment: MJ occasionally PHYSICAL EXAM BP 150/90 Pulse 77 Temp 36.1 ?C (96.9 ?F) (Temporal) R ale 16 Wt 89.8 kg (198 lb) SpO2 99% BMI 27.62 kg/m? General Appearance: well appearing, in no acute distress, al ert Neck: Thyroid normal size and symmetric without palpable nod ules, Neck supple, No adenopathy Lungs: Lungs clear to auscultation. No wheezing, rhonchi, ra les. Heart: RRR without murmur, gallop, or rubs. No ectopy Ext: no edema in LE bilaterally, good distal pulses ASSESSMENT/PLAN: 1. Elevated blood-pressure reading, without diagnosis of hyp ertension - ICD9: 796.2, ICD10: R03.0 (primary diagnosis) Essential hypertension vs secondary hypertension - continue current medication - Encouraged dietary sodium restriction/DASH diet - Recommended regular aerobic exercise. - Recommend home blood pressure monitoring, to bring results in on next visit - Recheck in 3 weeks, sooner if needed. - Goal of BP <130/80 Labs including CBC, CMP normal. EKG in office normal. Further work-up for secondary cause with: - TSH BLD - URINALYSIS, WITH MICROSCOPIC 2. Persistent headaches - ICD9: 784.0, ICD10: R51 Tension or cervicogenic headaches most likely but could also be due elevated blood pressures. Head CT in ER negative. No new or worsening symptoms Start Medrol dose pack Follow-up as above Prescription instructions reviewed with patient as applicabl e. Potential red flag symptoms discussed with the patient. Reviewed appro priate action plan to take if red flag symptoms occur. Patient agreeable t o treatment plan Taisha Galeano APRN.TICKET SALES SUPERVISOR helico pylori ab on 2019-08-10 H pylori Ab, IgG <0.4 Normal 08-10-2019 [facility] ([id number]) Comment: Result Comment: U/mL are int erpreted as follows: Negative specimens <0.9 Indeterminate specimens >=0. 9 to <1.1 Positive specimens >=1.1 Results were obtained with avelina shaw IMMULITE 2000 H.pylori IgG EIA. Results obtained from other manufacturers' assay methods may not be used interchangeably. Performed By: #### TSH, HPYL RI ####[facility] [address] [place], [place] [phone]- [phone] H. pylori IgG, Qual Negative Negative Normal 08-10-2019 [facility] ([id number]) Comment: Result Comment: H. pylori Ig G antibodies were not detected in the sample. Negative results by this erick t do not preclude recent primary infection. Performed By: #### TSH, HPYL RI ####[facility] [address] [place], [place] [phone]- [phone] cnov on 2019-08-10 CNOV Office Visit (INTMWS) Normal 08-10-[address] [place] [address] Clinic ABEL KURTZ ([id number]) 1995 [facility] Date Time Provider Department ([id number]) 08/10/19 1:40 PM OLDER TAISHA (T[employer] SAL[employer] SUPERVISOR) INTMWS During your visit today, we recorded the following informati on about you: Temperature Pulse Respiration Blood pressure 96.9 degrees 77/minute 16/minute 150/90 Weight 89.8 kg Taishaarnel Galeano, CUSHION MAKERABDULLAHI 08/10/2019 4:09 PM Signed CC Patient presents with: ER F/U: headache, elevated BP HPI Abel Kurtz is a 23 year old male who presents to the [facility] for above. Facility: [facility] Date of visit: 08/05/19 Reason for visit: headache, facial pressure and tingling in hands that occurred with bowel movement. Hospital course: Head CT negative. CBC and CMP u nremarkable. BP was elevated, headache attributed to this. Diagnosis: hypertension- new Discharge: discharged home on norvasc 2.5 mg daily Current symptoms: Continues to have headaches al most daily but not as intense or lasting as long. Usually headaches st art in the neck with ROM and go up the back of his head. Denies nec k pain other than with ROM. No history of migraines or headaches. No new or worsening sympto ms since he was in the ER. Treats with ibuprofen with moderate relief. Denies history of hypertension but both his moth er and father have it. Sister has a history of betsy malf ormation and migraines. Patient does not have a PCP but when he comes in for acute visits BP is usually elevated . Taking Norvasc as directed, denies side effects Home BP's: No Denies: chest pain, palpitat ions, dyspnea, peripheral edema, fatigue, flushing, sweats, nausea Last 4 Encounter BP Readings: Date: BP: 08/10/2019 150/90 07/29/2019 146/94 07/29/2019 128/84 01/22/2019 140/100 Last 3 Encounter Wt Readings: Date: Wt: 08/10/2019 89.8 kg (198 lb) 07/29/2019 89.4 kg (197 lb) 07/29/2019 90.4 kg (199 lb 6.4 oz) Exercise: denies regular aerobic exercise. Diet: Watch for salt, fat, cholesterol: No. Caffeine: 1 se rving daily Water intake: adequate Alcohol intake: no . Sm oking: trying to quit, down to 1/4 PPD now Frequent NSAID use: No Decongestants: No Thyroid disorders? No Sleep disorders/snoring? No REVIEW OF SYSTEMS See HPI PAST MEDICAL HISTORY Diagnosis Date - Chronic daily headache PAST SURGICAL HISTORY Procedure Laterality Date - NONE ALLERGIES Patient has no known allergies. MEDICATIONS amLODIPine (NORVASC) 2.5 mg tablet Take 1 tablet by mouth on ce daily. methylPREDNISolone (MEDROL, LAWRENCE,) 4 mg Dose-Pack Follo w dosing instructions, take with food. FAMILY HISTORY Problem Relation Age of Onset - Headache Father Occasional headaches - Hypertension Father - Hypertension Mother - Headache Sister Jayden, IH - No Known Problems Brother - No Known Problems Maternal Grandmother - No Known Problems Maternal Grandfather - No Known Problems Paternal Grandmother - No Known Problems Paternal Grandfather - No Known Problems Brother Social History Tobacco Use - Smoking status: Current Every Day Smoker Packs/day: 0.50 Types: Cigarettes - Smokeless tobacco: Never Used Substance Use Topics - Alcohol use: Yes Frequency: Monthly or less Drinks per session: 5 or 6 Binge frequency: Less than monthly Comment: RARE - Drug use: Yes Types: Marijuana Comment: MJ occasionally PHYSICAL EXAM BP 150/90 Pulse 77 Temp 36.1 ?C (96.9 ?F) (Temporal) R ale 16 Wt 89.8 kg (198 lb) SpO2 99% BMI 27.62 kg/m? General Appearance: well appearing, in no acute distress, al ert Neck: Thyroid normal size and symmetric without palpable nodules, Neck supple, No adenopathy Lungs: Lungs clear to auscultation. No wheezing, rhonchi, ra les. Heart: RRR without murmur, gallop, or rubs. No ectopy Ext: no edema in LE bilaterally, good distal pulses ASSESSMENT/PLAN: 1. Elevated blood-pressure reading, without diag nosis of hypertension - ICD9: 796.2, ICD10: R03.0 (primary diagnosis) Essential hypertension vs secondary hypertension - continue current medication - Encouraged dietary sodium restriction/DASH diet - Recommended regular aerobic exercise. - Recommend home blood pressure monitoring, to b ring results in on next visit - Recheck in 3 weeks, sooner if needed. - Goal of BP <130/80 Labs including CBC, CMP normal. EKG in office normal. Further work-up for secondary cause with: - TSH BLD - URINALYSIS, WITH MICROSCOPIC 2. Persistent headaches - ICD9: 784.0, ICD10: R51 Tension or cervicogenic headaches most likely but coul d also be due elevated blood pressures. Head CT in ER negative. No new or worsening symptoms Start Medrol dose pack Follow-up as above Prescription instructions reviewed with patient as madie licable. Potential red flag symptoms discussed with the patient. Review ed appropriate action plan to take if red flag symptoms occur. Patient agreeable to treatm ent plan Taisha Galeano APRN.TICKET SALES SUPERVISOR Referring Provider: SELF [[id number]] Allergies As of Date: 08/10/2019 (No Known Allergies) Date Reviewed: 08/10/2019 Reviewed by: Mayelin Hsu Quality Assurance Manager - Fully Assessed Reason for Visit: ER F/U [41] Cmt: headache, elevated BP Primary Visit Diagnosis:Elevated blood-pressure reading, without diagnosis of hypertension [R03.0] Other Visit Diagnosis:Persistent headaches [R51] Order(s):amLODIPine (NORVASC) 2.5 mg tabletTake 1 tablet by mouth once daily.Disp: 30 tabletRfl: 0 methylPREDNISolone (MEDROL, LAWRENCE,) 4 mg Dose-PackFollow dosin g instructions, take with food.Disp: 1 PackageRfl: 0 TSH BLD [SQTSH] Order #: [id number] FUTURE URINALYSIS, WITH MICROSCOPIC [SQUAWMIC] Order #: [id number] pec. #:[id number] Prescriptions as of 08/10/2019 Sig: AMLODIPINE 2.5 MG TABLET Take 1 tablet by mouth once d* METHYLPREDNISOLONE 4 MG TABLE* Follow dosing instructions, t * Problem List As Of Date 08/10/2019 Noted Resolved Migraine without aura, not intractable, with st*10/07/2017 Chronic migraine [G43.709] 12/15/2017 Chronic daily headache [R51] 12/15/2017 Elevated blood-pressure reading, without diagno*08/10/2019 Persistent headaches [R51] 08/10/2019 Prescriptions ordered this encounter Disp Refills Start End AMLODIPINE 2.5 MG TABLET 30 t* 0 08/10/2019 Class: Med Update Route: ORAL Sig: Take 1 tablet by mouth once daily. METHYLPREDNISOLONE 4 MG TABLETS IN A* 1 Pa* 0 08/10/2019 Sig: Follow dosing instructions, take with food. Encounter Status:Closed by TAISHA GALEANO CNP on 08/10/19 cnco on 2019-08-10 CNCO Letter Text Normal 08-10-2019 [facility] ([id number]) progress on 2019-07 PROGRESS HNO ID: [id number] Normal 07-29-2019 [facility] Author: Taisha Salazar) Fidel [place] ([id number]) Service: ? Author Type: Nurse Practitioner Type: Progress Notes Filed: 07/29/2019 12:01 PM Note Text: CC Patient presents with: Pain HPI Abel Kurtz is a 23 year old male who presents with abdomi nal pain for two weeks. Location: lower abdomen without radiation Described as: sharp, intermittent Aggravating factors: nothing Alleviating factors: nothing, has not treated with any acid reducers Associated symptoms: heart burn, nausea Denies: blood in stools or black stools, change in bowel hab it, vomiting, problem swallowing, odynophagia, bloating, excessive belchin g, loss of appetite, unintentional weight loss, fever, chills, sweats GI history: None. Surgeries: None. Endoscopy: None Family history: None Patient also complains of chest pain that started about one week ago. Occurring daily, lasts only a few seconds. Location: left ch est Quality: sharp Radiates: none Pain is triggered/aggravated by: nothing Associated symptoms are abdominal pain, heartburn or indeges tion, nausea, flushing, racing heart. Denies: exertional, diaphoresis, numbness, tingling, dizzine ss, releived by rest, inspiratory pain Patient's cardiac risk factors are none. Last EKG: None Stress test history: none No significant family cardiac history. Has never had chest p ain before. REVIEW OF SYSTEMS General:No malaise, fatigue, body aches HEENT: No upper respiratory symptoms Respiratory: no cough, no wheezing, no hemoptysis Cardiovascular: no swelling and no decrease in exercise tole marie : No dysuria, urgency, frequency, hesitancy, hematuria, fl ank pain or low back pain PAST MEDICAL HISTORY Diagnosis Date - Chronic daily headache PAST SURGICAL HISTORY Procedure Laterality Date - NONE ALLERGIES Patient has no known allergies. MEDICATIONS No prescriptions on file. FAMILY HISTORY Problem Relation Age of Onset - Headache Father Occasional headaches - Hypertension Father - Hypertension Mother - Headache Sister Jayden IH Social History Tobacco Use - Smoking status: Current Every Day Smoker Packs/day: 0.50 Types: Cigarettes - Smokeless tobacco: Never Used Substance Use Topics - Alcohol use: Yes Frequency: Monthly or less Drinks per session: 5 or 6 Binge frequency: Less than monthly Comment: RARE - Drug use: Yes Types: Marijuana Comment: MJ occasionally PHYSICAL EXAM BP 146/94 (BP Site: Left Arm, BP Position: Sitting, BP Cuff Size: Large Adult) Pulse 68 Temp 36.7 ?C (98.1 ?F) (Temporal Artery) Resp 16 Wt 89.4 kg (197 lb) SpO2 97% BMI 27.48 kg/m? General Appearance: well appearing, in no acute distress, al ert Pysch: mood and affect broad and appropriate Skin: Skin color, texture, turgor normal for age; Lungs: Lungs clear to auscultation. No wheezing, rhonchi, ra les. Heart: RRR without murmur, gallop, or rubs. No ectopy Abdomen: Soft, non-distended. moderate lower abdominal tende rness with palpation. No guarding or rebound tenderness. Negative Ani y's sign. Bowel sounds normal and active. No masses, organomegaly. CVA tenderness absent Ext: no edema in LE bilaterally, good distal pulses Clinically suspected DVT? (+3)= 0 Alternative diagnosis is less likely than PE (+3)?= 0 Heart Rate >100bpm? (+1.5)= 0 Immobilization/surgery in previous four weeks? 0 History of DVT or PE (1.5+)=0 Hemoptysis? (+1)=0 Malignancy (treatment for within 6 months, palliative +1)=0 TOTAL SCORE: 0 Score > 4 - PE likely. Consider diagnostic imaging. Score 4 or less - PE unlikely. Consider D-dimer to rule out PE. ASSESSMENT/PLAN: 1. Lower abdominal pain - ICD9: 789.09, ICD10: R10.30 (prima ry diagnosis) Differential Diagnosis includes GERD and PUD - Begin treatment with Pepcid 20 mg BID Work-up with - CBC - COMP METABOLIC PANEL - H. PYLORI - Discussed lifestyle modifications, see patient instruction s - Follow-up pending results of work-up 2. Heartburn - ICD9: 787.1, ICD10: R12 As above 3. Chest pain, unspecified type - ICD9: 786.50, ICD10: R07.9 Atypical chest pain, symptoms are not consistent with cardia c ischemia. Nonexertional nature of symptom, accompanying GI symptoms an d localization of the pain suggestive of GERD - ECG COMPLETE today showed sinus bradycardia at 58 BPM, UT interval 146 ms, normal QRS, normal ST-T, QT 414 ms - D-DIMER to rule out PE Plan as above Prescription instructions reviewed with patient as applicabl e. Potential red flag symptoms discussed with the patient. Reviewed appro priate action plan to take if red flag symptoms occur. Patient agreeable t o treatment plan. Taisha Galeano APRN.TICKET SALES SUPERVISOR PROGRESS HNO ID: [id number] Normal 07-29-2019 [facility] Author: Fahad Joy [place] ([id number]) Service: ? Author Type: Physician Type: Progress Notes Filed: 07/29/2019 11:15 AM Note Text: Patient presents with: left side of abdomen pain: x 2 weeks-also some heartburn HPI: Abdominal pain: Duration: Couple weeks Location: Left more than right side Character: Cramping which becomes sharp and stabbing Radiation: Aggravating/Relieving: Not better or worse with eating or riley wel movements Pain relievers: None, has not tried any acid reducers Associated: Some nausea, chest burning Pertinent negatives: Denies acid brash, vomiting, diarrhea, blood in stool Chest pain: Duration: 3 days. Not currently having pain. Location: Left mid chest Character: sharp and stabbing Radiation: Aggravating: Not effected by movement or activity Relieving: Pain relievers: none Associated: Pertinent negatives: Denies fever, chills, cough, shortness of breath, sore throat, nasal congestion, rhinorrhea PAST MEDICAL HISTORY Diagnosis Date - Chronic daily headache PAST SURGICAL HISTORY Procedure Laterality Date - NONE MEDICATIONS: No prescriptions on file. ALLERGIES: ALLERGIES No Known Allergies VITALS: BP 128/84 Pulse 60 Temp 36.8 ?C (98.2 ?F) (Tympanic) R ale 16 Wt 90.4 kg (199 lb 6.4 oz) BMI 27.81 kg/m? PHYSICAL EXAM: GEN: pleasant, no acute distress, alert HEENT: PERRL, EOMI, NECK: supple, no lymphadenopathy, no thyromegaly HEART: regular rate, regular rhythm, no murmurs LUNGS: clear to auscultation, no wheezes or crackles, no inc reased WOB CHEST: Points to left chest in mid sternal line above the ni pple level as location of pain ABD: soft, non-distended, no masses palpated, non-tender EXT: no clubbing, no cyanosis, no edema NEURO: Alert and oriented to person, place, and time. Normal strength. Normal gait. No tremor. ASSESSMENT/PLAN: 1. Abdominal pain, unspecified abdominal location - ICD9: 78 9.00, ICD10: R10.9 (primary diagnosis) Benign exam with normal bowel function. Bilateral symptoms. 2. Left-sided chest pain - ICD9: 786.50, ICD10: R07.9 Non-exertional chest pain. Not having symptoms currently. Proper evaluation exceeds standard express care diagnostic a bility, but can probably be safely evaluated as an outpatient. Patient t ransferred to primary care schedule. Fahad Joy MD ecg complete on ECG COMPLETE NAME : ABEL KURTZ 07-29-19 [facility] PID : [id number] Mehul gallegos ([id number]) : 1995 Gender : Male Race : ORD : [id number] Procedure Date : Jul 29 2019 11:24:01 Edit Date : Jul 30 2019 07:52:44 Diagnosis:SINUS BRADYCARDIA OTHERWISE NORMAL ECG Confirmed by LADONNA TIJERINA M.D. ([id number]) on 07/30/2019 7:52: 40 AM Ventricular Rate : 58 BPM Atrial Rate : 58 BPM P-R Interval : 146 ms QRS Duration : 94 ms Q-T Interval : 414 ms QTC Calculation(Bazett) : 406 ms P Batson : 36 degrees R Batson : 43 degrees T Batson : 27 degrees Test Reason : Location : 185 : [facility] Overread By : LADONNA TIJERINA M.D. Edited By : LADONNA TIJERINA M.D. Referred By : TAISHA GALEANO Acquired by : joaquina MERIDA dimer on D dimer Test sent to [place] <500 Normal 0 [facility] ([id number]) Comment: Result Comment: Account Cred ited HIDE comp metabolic panel on 2019-07-29 Albumin [Mass/Vol] 4.8 3.9-4.9 g/dL Normal 07-29-2019 [facility] ([id number]) ALP [Catalytic 94 38-113 U/L Normal 07-29-2019 [facility] activity/Vol] [place] and (20546) ALT [Catalytic 23 10-54 U/L Normal 07-29-2019 [facility] activity/Vol] [place] and (25086) Anion gap [Moles/Vol] 7 9-18 mmol/L Low 07-29-19 20 [facility] ([id number]) AST [Catalytic 21 14-40 U/L Normal 07-29-2019 [facility] activity/Vol] [place] and (37288) Bilirubin [Mass/Vol] 0.3 0.2-1.3 mg/dL Normal 0 [facility] ([id number]) Calcium [Mass/Vol] 10.1 8.5-10.2 mg/dL Normal 07-29-2019 [facility] ([id number]) Chloride [Moles/Vol] 102 97-105 mmol/L Normal 0 [facility] ([id number]) CO2 [Moles/Vol] 29 22-30 mmol/L Normal 07-29-2019 [facility] ([id number]) Comment: Result Comment: Hemolysis pr esent Creatinine 0.89 0.73-1.22 mg/dL Normal 07-29-2019 [facility] [Mass/Vol] [place] ([id number]) eGFR- Amer. >60 Normal 07-29-2019 [facility] ([id number]) GFR/1.73 sq M >60 mL/min/{1.73_m Normal 07-29-2019 [facility] predicted among 2} Elizabeth mills ([id number]) non-blacks MDRD (S/P/Bld) [Vol rate/Area] Comment: Result Comment: eGFR (Estima akilah GFR) Units of measure: mL/min/1.73 meters squared eGFR is derived from the ree xpressed MDRD Study equation using the following parameters: serum creatinine, age, gender and race. The creatinine assay has been calibrated to be traceable to IDMS. An eGFR <60 mL/min/1.73m2 fo r >3 months is consistent with chronic kidney disease. Refer to KDOQI guidelines for clinical interpretation. In patients with unstable re nal function, e.g. those with acute kidney injury, the eGFR may not accurately reflect actual GFR. Glucose [Mass/Vol] 107 74-99 mg/dL High 07-29-2019 [facility] ([id number]) Comment: Result Comment: The [place] [employer] (ADA) provides guidance for cutoff values for fasting glucose and random glucose. The ADA defines fasting as no caloric intake for at least 8 hours. Fas ting plasma glucose results between 100 to 125 mg/dL indicate increased risk for diabetes (prediabetes). Fasting plasma glucose resul ts greater than or equal to 126 mg/dL meet the criteria for diagnosis of diabetes. In the absence of unequivocal hyperglycemia, results should be confirmed by repeat testing. In a patient with classic s ymptoms of hyperglycemia or hyperglycemic crisis, random plasma glucose results greater than or equal to 200 mg/dL meet the criteria for diagnosis of diabetes. Reference: Standards of [facility] Care in Diabetes 2016, [place] [employer] Association. Diabetes Care. 2016.39(Suppl 1). Potassium [Moles/Vol] 4.3 3.7-5.1 mmol/L Normal 07-29-19 20 [facility] ([id number]) Protein [Mass/Vol] 7.4 6.3-8.0 g/dL Normal 07-29-2019 [facility] ([id number]) Sodium [Moles/Vol] 138 136-144 mmol/L Normal 07-29-2019 [facility] ([id number]) Urea nitrogen [Mass/Vol] 12 9-24 mg/dL Normal 07-28 [facility] ([id number]) cnpn on 2019-07-29 CNPN Telephone (INTMWS) Normal 07-29-2019 [place] [facility] ABEL KURTZ ([id number]) 1995 [facility] Provider Department ([id number]) 07/29/19 TAISHA GALEANO) INTMWS During your visit today, we recorded the following informati on about you: Taisha Galeano APRN.CNP 07/29/2019 4:32 PM Signed Labs were normal. Follow-up in one week or sooner if worseni ng symptoms SWAPNA Toro LPN 07/29/2019 4:40 PM Signed Patient notified of results and provider's instructions. P atient verbalizes understanding. Qian Gutiérrez LPN Allergies As of Date: 07/29/2019 (No Known Allergies) Date Reviewed: 07/29/2019 Reviewed by: Taisha Salazar) Fidel - Fully Assessed Reason for Visit: Results [95] Problem List As Of Date 07/29/2019 Noted Resolved Migraine without aura, not intractable, with st*10/07/2017 Chronic migraine [G43.709] 12/15/2017 Chronic daily headache [R51] 12/15/2017 Encounter Status:Closed by QIAN GUTIÉRREZ LPN on 07/29/19 cnov on 2019-07-29 CNOV Office Visit (INTMWS) Normal 07-29-19 [place] [facility] ABEL KURTZ ([id number]) 1995 [facility] Time Provider Department ([id number]) 07/29/19 11:00 AM TAISHA GALEANO) INTMWS During your visit today, we recorded the following informati on about you: Temperature Pulse Respiration Blood pressure 98.1 degrees 68/minute 16/minute 146/94 Weight 89.4 kg Taishaarnel Galeano, CUSHION MAKERPrincessTWIN 07/29/2019 12:01 PM Signed CC Patient presents with: Pain HPI Abel Kurtz is a 23 year old male who presents with abdominal pain for two weeks. Location: lower abdomen without radiation Described as: sharp, intermittent Aggravating factors: nothing Alleviating factors: nothing, has not treated with any acid reducers Associated symptoms: heart burn, nausea Denies: blood in stools or black stools, change in bowel hab it, vomiting, problem swallowing, odynophagia, bloating, excessive belchin g, loss of appetite, unintentional weight loss, fever, chills, sweats GI history: None. Surgeries: None. Endoscopy: None Family history: None Patient also complains of ch est pain that started about one week ago. Occurring daily, lasts only a few seconds. Location: left chest Quality: sharp Radiates: none Pain is triggered/aggravated by: nothing Associated symptoms are abdominal pain, heartburn or indeges tion, nausea, flushing, racing heart. Denies: exertional, diaphoresis, numbness, tingling, dizzi ness, releived by rest, inspiratory pain Patient's cardiac risk factors are none. Last EKG: None Stress test history: none No significant family cardiac history. Has never had chest p ain before. REVIEW OF SYSTEMS General:No malaise, fatigue, body aches HEENT: No upper respiratory symptoms Respiratory: no cough, no wheezing, no hemoptysis Cardiovascular: no swelling and no decrease in exercise tole marie : No dysuria, urgency, frequency, hesitancy, hematuria, flank pain or low back pain PAST MEDICAL HISTORY Diagnosis Date - Chronic daily headache PAST SURGICAL HISTORY Procedure Laterality Date - NONE ALLERGIES Patient has no known allergies. MEDICATIONS No prescriptions on file. FAMILY HISTORY Problem Relation Age of Onset - Headache Father Occasional headaches - Hypertension Father - Hypertension Mother - Headache Sister Jayden, IH Social History Tobacco Use - Smoking status: Current Every Day Smoker Packs/day: 0.50 Types: Cigarettes - Smokeless tobacco: Never Used Substance Use Topics - Alcohol use: Yes Frequency: Monthly or less Drinks per session: 5 or 6 Binge frequency: Less than monthly Comment: RARE - Drug use: Yes Types: Marijuana Comment: MJ occasionally PHYSICAL EXAM BP 146/94 (BP Site: Left Arm, BP Positio n: Sitting, BP Cuff Size: Large Adult) Pulse 68 Temp 36.7 ?C (98.1 ?F) (Temporal Artery) Resp 16 Wt 89.4 kg (197 lb) SpO2 97% BMI 27.48 kg/m? General Appearance: well appearing, in no acute distress, al ert Pysch: mood and affect broad and appropriate Skin: Skin color, texture, turgor normal for age; Lungs: Lungs clear to auscultation. No wheezing, rhonchi, ra les. Heart: RRR without murmur, gallop, or rubs. No ectopy Abdomen: Soft, non-distended. moderate lower abdominal tende rness with palpation. No guarding or rebound tenderness. Negative Mur phy's sign. Bowel sounds normal and active. No masses, organomegaly. CVA tende rness absent Ext: no edema in LE bilaterally, good distal pulses Clinically suspected DVT? (+3)= 0 Alternative diagnosis is less likely than PE (+3)?= 0 Heart Rate >100bpm? (+1.5)= 0 Immobilization/surgery in previous four weeks? 0 History of DVT or PE (1.5+)=0 Hemoptysis? (+1)=0 Malignancy (treatment for within 6 months, palliative +1)=0 TOTAL SCORE: 0 Score > 4 - PE likely. Consider diagnostic imaging. Score 4 or less - PE unlikely. Consider D-dimer to rule out PE. ASSESSMENT/PLAN: 1. Lower abdominal pain - ICD9: 789.09, ICD10: R10.30 (prima ry diagnosis) Differential Diagnosis includes GERD and PUD - Begin treatment with Pepcid 20 mg BID Work-up with - CBC - COMP METABOLIC PANEL - H. PYLORI - Discussed lifestyle modifications, see patient instruction s - Follow-up pending results of work-up 2. Heartburn - ICD9: 787.1, ICD10: R12 As above 3. Chest pain, unspecified type - ICD9: 786.50, ICD10: R07.9 Atypical chest pain, symptoms are not consistent with cardia c ischemia. Nonexertional nature of symptom, accompanying GI symptoms and localization of the pain suggestive of GERD - ECG COMPLETE today showed sinus bradycardia at 58 BP M, UT interval 146 ms, normal QRS, normal ST-T, QT 414 ms - D-DIMER to rule out PE Plan as above Prescription instructions reviewed with patient as madie licable. Potential red flag symptoms discussed with the patient. Review ed appropriate action plan to take if red flag symptoms occur. Patient agreeable to treatm ent plan. SWAPNA Toro APRN.CNP 07/29/2019 11:45 AM Signed 1. Start pepcid over the counter (generic is fin e), take 20 mg 2 times a day. If pepcid is not available then start omeprazole over the counter, take 20 mg in the morning on an empty stomach and wait at l east 30 minutes before eating 2. Eat 6 small meals a day instead of 2 or 3 big ones. Thi s is to keep some food in your stomach so the acid has something to work on. Eat slowly. Don't lie down for 2 to 3 hours after eating. Avoid eating or drin gadiel anything right before going to bed. 3. Elevate head of bed on bl ocks approximately 4-6 inches. It is not sufficient to just use a wedge pillow. Bending at waist increases intra -abdominal pressure, which will increase reflux. 4. Minimize/eliminate chocolate, coffee, peppermint, f ruit juices, tomatoes, greasy and spicy foods. All of these eit her stimulate stomach acid production, or are acidic themselves. 5. Weight loss is always asif eficial. Abdominal weight increases intra-abdominal pressure, which increases gastroesophageal reflux symptoms. To ER if you develop severe abdominal pain, v omiting that won't stop, high fever, rigid/hard abdomen, difficulty breathing. Referring Provider: SELF [200] Allergies As of Date: 07/29/2019 (No Known Allergies) Date Reviewed: 07/29/2019 Reviewed by: Taisha (Twin) Fidel - Fully Assessed Reason for Visit: Pain [78] Reason For Visit History Recorded Primary Visit Diagnosis:Lower abdominal pain [R10.30] Other Visit Diagnoses:Heartburn [R12] Chest pain, unspecified type [R07.9] Order(s):ECG COMPLETE [ECG01] Order #: [id number] FUTURE CBC [SQCBC] Order #: [id number] FUTURE COMP METABOLIC PANEL [SQCMP] Order #: [id number] FUTURE H PYLORI IGG AB [SQHPYLRI] Order #: [id number] FUTURE Problem List As Of Date 07/29/2019 Noted Resolved Migraine without aura, not intractable, with st*10/07/2017 Chronic migraine [G43.709] 12/15/2017 Chronic daily headache [R51] 12/15/2017 Other instructions from your clinician: 1. Start pepcid over the counter (generic is fine), take 20 mg 2 times a day. If pepcid is not available then start omeprazole over t he counter, take 20 mg in the morning on an empty stomach and wait at le ast 30 minutes before eating 2. Eat 6 small meals a day instead of 2 or 3 big ones. This is to keep some food in your stomach so the acid has something to work on. Eat slowly. Don't lie down for 2 to 3 hours after eating. Avoid eating or drinking anything right before going to bed. 3. Elevate head of bed on blocks approximately 4-6 inches. I t is not sufficient to just use a wedge pillow. Bending at waist incr eases intra-abdominal pressure, which will increase reflux. 4. Minimize/eliminate chocolate, coffee, peppermint, fruit j uices, tomatoes, greasy and spicy foods. All of these either stimul ate stomach acid production, or are acidic themselves. 5. Weight loss is always beneficial. Abdominal weight increa ses intra-abdominal pressure, which increases gastroesophageal r eflux symptoms. To ER if you develop severe abdominal pain, vomiting that won't stop, high fever, rigid/hard abdomen, difficulty breathing. Letter Text Encounter Status:Closed by TAISHA GALEANO CNP on 07/29/19 CNOV Office Visit (UCWSTR) Normal 07-29-[address] [place] [address] ABEL Moran ([id number]) 1995 [place] Date Time Provider Department ([id number]) 07/29/19 10:30 AM FAHAD JOY UCWSTR During your visit today, we recorded the following informati on about you: Temperature Pulse Respiration Blood pressure 98.2 degrees 60/minute 16/minute 128/84 Weight 90.4 kg Fahad Joy MD 07/29/2019 11:15 AM Signed Patient presents with: left side of abdomen pain: x 2 weeks-also some heartburn HPI: Abdominal pain: Duration: Couple weeks Location: Left more than right side Character: Cramping which becomes sharp and stabbing Radiation: Aggravating/Relieving: Not better or worse with eating or riley wel movements Pain relievers: None, has not tried any acid reducers Associated: Some nausea, chest burning Pertinent negatives: Denies acid brash, vomiting, diarrhea, blood in stool Chest pain: Duration: 3 days. Not currently having pain. Location: Left mid chest Character: sharp and stabbing Radiation: Aggravating: Not effected by movement or activity Relieving: Pain relievers: none Associated: Pertinent negatives: Denies fever, chills, cough, shortnes s of breath, sore throat, nasal congestion, rhinorrhea PAST MEDICAL HISTORY Diagnosis Date - Chronic daily headache PAST SURGICAL HISTORY Procedure Laterality Date - NONE MEDICATIONS: No prescriptions on file. ALLERGIES: ALLERGIES No Known Allergies VITALS: BP 128/84 Pulse 60 Temp 36.8 ?C (98.2 ?F) (Tympanic) R ale 16 Wt 90.4 kg (199 lb 6.4 oz) BMI 27.81 kg/m? PHYSICAL EXAM: GEN: pleasant, no acute distress, alert HEENT: PERRL, EOMI, NECK: supple, no lymphadenopathy, no thyromegaly HEART: regular rate, regular rhythm, no murmurs LUNGS: clear to auscultation, no wheezes or crackles, no inc reased WOB CHEST: Points to left chest in mid sternal line above the ni pple level as location of pain ABD: soft, non-distended, no masses palpated, non-tender EXT: no clubbing, no cyanosis, no edema NEURO: Alert and oriented to person, place, and time. Normal strength. Normal gait. No tremor. ASSESSMENT/PLAN: 1. Abdominal pain, unspecified abdominal location - ICD9: 789.00, ICD10: R10.9 (primary diagnosis) Benign exam with normal bowel function. Bilateral symptoms. 2. Left-sided chest pain - ICD9: 786.50, ICD10: R07.9 Non-exertional chest pain. Not having symptoms currently. Proper evaluation exceeds standard express care diagnostic ability, but can probably be safely evaluated as an outpatient. P atient transferred to primary care schedule. Fahad Joy MD Referring Provider: SELF [200] Allergies As of Date: 07/29/2019 (No Known Allergies) Date Reviewed: 07/29/2019 Reviewed by: Beverly Rodriguez LPN - Fully Assessed Reason for Visit: left side of abdomen pain [Other] Cmt: x 2 weeks-also some h eartburn Primary Visit Diagnosis:Abdominal pain, unspecified abdominal location [R10.9] Other Visit Diagnosis:Left-sided chest pain [R07.9] Problem List As Of Date 07/29/2019 Noted Resolved Migraine without aura, not intractable, with st*10/07/2017 Chronic migraine [G43.709] 12/15/2017 Chronic daily headache [R51] 12/15/2017 Encounter Status:Closed by FAHAD JOY MD on 07/29/19 cbc on 2019-07-29 Absolute nRBC <0.01 <0.01 Normal 07-29-2019 [facility] ([id number]) Erythrocyte distribution 12.0 11.5-15.0 % Normal 07-28 [facility] width (RBC) [Ratio] [place] ([id number]) Hematocrit (Bld) [Volume 43.4 39.0-51.0 % Normal 07-28 [facility] fraction] [place] ([id number]) Hemoglobin (Bld) 15.2 13.0-17.0 g/dL Normal 07-29-2019 [facility] [Mass/Vol] [place] ([id number]) MCH (RBC) [Entitic mass] 29.7 26.0-34.0 pG Normal 07-28 [facility] ([id number]) MCHC (RBC) [Mass/Vol] 35.0 30.5-36.0 g/dL Normal 07-29-19 20 [facility] ([id number]) MCV (RBC) [Entitic vol] 84.9 80.0-100.0 fL Normal 07-28 [facility] ([id number]) Platelet mean volume 9.5 9.0-12.7 fL Normal 0 [facility] (Bld) [Entitic vol] [place] ([id number]) Platelets (Bld) [#/Vol] 330 150-400 k/uL Normal 2019 [facility] ([id number]) RBC (Bld) [#/Vol] 5.11 4.20-6.00 m/uL Normal 07-29-2019 C [facility] ([id number]) WBC (Bld) [#/Vol] 8.89 3.70-11.00 k/uL Normal 07-29-2019 [facility] ([id number]) us scrotum and contents on 2019-01-22 US SCROTUM AND * * *Final Report* * * Normal [facility] CONTENTS DATE OF EXAM: Jan 22 2019 10:24AM [place] ([id number]) WRU 1063 - US SCROTUM AND CONTENTS / PROCEDURE REASON: multiple diagnoses * * * * Physician Interpretation * * * * EXAM TITLE: US SCROTUM AND CONTENTS, US DOPPLER COMPLETE HISTORY: Dysuria. Testicular pain on left side. TECHNIQUE: Sonography of the scrotal contents with color maxx w and spectral Doppler imaging of the testicular vasculature was p erformed. Images were obtained and stored in a permanent archive. MQ: [facility] COMPARISON: None RESULT: RIGHT TESTIS: Size: 4.6 x 3.3 x 2.4 cm Parenchyma: Homogeneous with no calcifications or mass. Epididymis: The right epididymis measures 11 x 13 x 10 mm. T here is a 3 mm tiny cyst in the epididymal head. Vascularity: Normal intratesticular arterial and venous flow with normal spectral waveforms. LEFT TESTIS: Size: 4.4 x 3.2 x 2.0 cm Parenchyma: Homogeneous with no calcifications or mass. Epididymis: The left epididymis measures 8 x 11 x 8 mm. No abnormalities seen. Vascularity: Slightly increased hyperemia of the testis comp ared to the counterpart right side. Others: A 4 x 5 x 2 mm scrotal roney noted. HYDROCELE: Bilateral small hydroceles identified. VARICOCELE: There is left-sided varicocele. IMPRESSION: Left-sided varicocele. Bilateral small hydroceles. Right epididymal head tiny cyst. Beam Dyer Recessed Vat: BELLA Transcribe Date/Time: Jan 22 2019 10:33A Dictated by : DANIELA MEIER MD This examination was interpreted and the report reviewed and electronically signed by: DANIELA MEIER MD on Jan 22 2019 10:39AM EST [id number] us doppler complete on 2019-01-22 US DOPPLER * * *Final Report* * * Normal 2018 [facility] COMPLETE DATE OF EXAM: Jan 22 2019 10:24AM [place] ([id number]) U 1033 - US DOPPLER COMPLETE / PROCEDURE REASON: multiple diagnoses * * * * Physician Interpretation * * * * EXAM TITLE: US SCROTUM AND CONTENTS, US DOPPLER COMPLETE HISTORY: Dysuria. Testicular pain on left side. TECHNIQUE: Sonography of the scrotal contents with color maxx w and spectral Doppler imaging of the testicular vasculature was p erformed. Images were obtained and stored in a permanent archive. MQ: [facility] COMPARISON: None RESULT: RIGHT TESTIS: Size: 4.6 x 3.3 x 2.4 cm Parenchyma: Homogeneous with no calcifications or mass. Epididymis: The right epididymis measures 11 x 13 x 10 mm. T here is a 3 mm tiny cyst in the epididymal head. Vascularity: Normal intratesticular arterial and venous flow with normal spectral waveforms. LEFT TESTIS: Size: 4.4 x 3.2 x 2.0 cm Parenchyma: Homogeneous with no calcifications or mass. Epididymis: The left epididymis measures 8 x 11 x 8 mm. No abnormalities seen. Vascularity: Slightly increased hyperemia of the testis comp ared to the counterpart right side. Others: A 4 x 5 x 2 mm scrotal roney noted. HYDROCELE: Bilateral small hydroceles identified. VARICOCELE: There is left-sided varicocele. IMPRESSION: Left-sided varicocele. Bilateral small hydroceles. Right epididymal head tiny cyst. Beam Dyer Recessed Vat: BELLA Transcribe Date/Time: Jan 22 2019 10:33A Dictated by : DANIELA MEIER MD This examination was interpreted and the report reviewed and electronically signed by: DANIELA MEIER MD on Jan 22 2019 10:39AM EST [id number] progress on 2019-01 PROGRESS HNO ID: [id number] Normal 01-22-2019 [facility] Author: Mikala Rendon [place] ([id number]) Service: ? Author Type: Filling Machine Tender Type: Progress Notes Filed: 01/22/2019 10:25 AM Note Text: Radiology Service Progress Note PATIENT NAME: Abel Kurtz DATE OF SERVICE: January 22, 2019 TIME: 10:24 AM PATIENT IDENTITY VERIFICATION COMPLETED USING TWO (2) IDENTI FIERS: Name and Date of confirmed by patient verbally. PATIENT GENDER DATA: Male PATIENT RELEVANT IMPLANT DATA REVIEWED: Not Applicable RADIOLOGY DEPARTMENT: Ultrasound PERIPHERAL IV DATA: Not applicable SIGNED BY: MIKALA RENDON RDMS RVT January 22, 2019 10:24 AM PROGRESS HNO ID: [id number] Normal 01-22-2019 [facility] Author: Taisha Galeano [place] ([id number]) Service: ? Author Type: Nurse Practitioner Type: Progress Notes Filed: 01/22/2019 8:47 AM Note Text: CC: Patient presents with: lower abdomen pain Groin Pain HPI Abel Kurtz is a 23 year old male who presents today for e r follow-up. Facility: [facility] Date of visit: 01/21/19 Reason for visit: lower abdominal pain radiating to groin Hospital course: No hospital records available at this time. Patient states they did no testing at that time but he was there one month ago for the same thing and they did a CT scan. Was told it was fany l and to follow-up with PCP, did not pursue this because he didn't chand ve insurance at that time. Current symptoms: Continues to have abdominal pain. States it started about on e month ago but has become worse the past few days. Location: lower abdomen with radiation to groin and low back . Occasionally pain will radiate to his scrotum. Described as: aching that was initially intermittent but now constant Aggravating factors: movement and activity Alleviating factors: resting Associated symptoms: Nausea and urinary symptoms x 3 days in cluding dysuria, frequency, hesitancy. Denies: bulging, pain with increased intraabdominal pressure , blood in stools or black stools, diarrhea, constipation, heartburn, v omiting, hematuria, dark/discolored urine, fever, chills, loss of madie etite GI history: None. Surgeries: None Denies history of kidney stones. Does admit to possibility o f STD. His female partner recently advised him she had genital herpes. He went to [facility] ER one week ago for evaluation. States he had a physical exa m but did not find evidence of herpes so they did not do any further testi ng. Has never had symptoms like this before. ROS Musculoskeletal: denies injury, chronic back pain, strenuous activities or heavy lifting PAST MEDICAL HISTORY Diagnosis Date - Chronic daily headache PAST SURGICAL HISTORY Procedure Laterality Date - NONE ALLERGIES Patient has no known allergies. MEDICATIONS No prescriptions on file. FAMILY HISTORY Problem Relation Age of Onset - Headache Father Occasional headaches - Hypertension Father - Hypertension Mother - Headache Sister Jayden, IH Social History Tobacco Use - Smoking status: Current Every Day Smoker Packs/day: 0.50 Types: Cigarettes - Smokeless tobacco: Never Used Substance Use Topics - Alcohol use: Yes Frequency: Monthly or less Drinks per session: 5 or 6 Binge frequency: Less than monthly Comment: RARE - Drug use: Yes Types: Marijuana Comment: MJ occasionally PHYSICAL EXAM BP 140/100 Pulse 72 Temp (!) 35.8 ?C (96.5 ?F) (Temporal ) Resp 14 Wt 88.5 kg (195 lb) SpO2 97% BMI 27.20 kg/m? General Appearance: well appearing, in no acute distress, al ert Lungs: lungs clear to auscultation. No wheezing, rhonchi, ra les Heart: RRR without murmur, gallop, or rubs. No ectopy Abdomen: Soft, non-distended. mild lower abdominal tendernes s with palpation. No guarding or rebound tenderness. Bowel sounds n ormal and active. No masses, organomegaly. CVA tenderness absent Male Genitourinary: Penis normal. No urethral discharge. Scr otum normal to palpation. No hernia. ASSESSMENT/PLAN: 1. Lower abdominal pain - ICD9: 789.09, ICD10: R10.30 (prima ry diagnosis) Etiology unclear. Differential Diagnosis includes hernia, ST D. No alarm symptoms or exam findings. - UA DIP, URINE (POC) in office normal - US SCROTUM AND CONTENTS stat today - Requested records from [facility] - Follow-up pending results of work-up 2. Testicular pain - ICD9: 608.9, ICD10: N50.819 Check GC/CHLAMYDIA AMPLIF, URINE See plan above - UA DIP, URINE (POC) - US SCROTUM AND CONTENTS 3. Dysuria - ICD9: 788.1, ICD10: R30.0 See #1 and 2 - UA DIP, URINE (POC) - GC/CHLAMYDIA AMPLIF, URINE - US SCROTUM AND CONTENTS 4. Elevated blood pressure reading in office without diagnos is of hypertension - ICD9: 796.2, ICD10: R03.0 Possibly due to pain but patient reports issues with elevate d BP even prior to this. Recommend establishing care with PCP for furt her evaluation and complete physical. Prescription instructions reviewed with patient as applicabl e. Potential red flag symptoms discussed with the patient. Reviewed appro priate action plan to take if red flag symptoms occur. Patient agreeable t o treatment plan. Taisha Galeano, CUSHION MAKER.TICKET SALES SUPERVISOR gc/chlamydia amp, ur on 2019-01-22 Chlamydia Positive for Critically 01-22-2019 [facility] Amplif, Ur Chlamydia trachomatis abnormal [place] by amplification. (0 [phone]) Comment: Result Comment: In low preva lence populations, the likelihood of a false positive may be higher than a true positive. Retesting by another method may be appropriate for patients who lack risk factors or clinical signs and symptoms consistent with inf ection. Performed By: #### UGCCT ### # [facility] [address], [place] [id number] GC Amplification, Ur Negative for Neisseria Normal 01-22-2019 [facility] gonorrhoeae by [facility] ([id number]) amplification. Comment: Performed By: #### UGCCT ### # [facility] [address] [place], [place] [id number] cnov on 2019-01-22 CNOV Office Visit (INTMWS) Normal 01-23-20 19 [facility] ABEL KURTZ ([id number]) 1995 [facility] Date Time Provider Department ([id number]) 01/22/19 7:40 AM OLDER, TAISHA (TWIN) INTMWS During your visit today, we recorded the following informati on about you: Temperature Pulse Respiration Blood pressure 96.5 degrees 72/minute 14/minute 140/100 Weight 88.5 kg Taisha Galeano APRN.CNP 01/22/2019 8:47 AM Signed CC: Patient presents with: lower abdomen pain Groin Pain HPI Abel Kurtz is a 23 year old male who presents today for e r follow-up. Facility: [facility] Date of visit: 01/21/19 Reason for visit: lower abdominal pain radiating to groin Hospital course: No hospital records available at this jose francisco e. Patient states they did no testing at that time but he was there one month ago for the same thing and they did a CT scan . Was told it was normal and to follow-up with PCP, did not pursue this because he didn't have insurance at that time. Current symptoms: Continues to have abdominal pain. States it started about one month ago but has become worse the past few days. Location: lower abdomen with radiation to groin and low back. Occasionally pain will radiate to his scrotum. Described as: aching that was initially intermittent but now constant Aggravating factors: movement and activity Alleviating factors: resting Associated symptoms: Nausea and urinary symptoms x 3 d ays including dysuria, frequency, hesitancy. Denies: bulging, pain with increased intraabdomi nal pressure, blood in stools or black stools, diarrhea, constipation, heartburn, vomiting , hematuria, dark/discolored urine, fever, chills, loss of appetite GI history: None. Surgeries: None Denies history of kidney stones. Does admit to p ossibility of STD. His female partner recently advised him she had genital herpes. He went to [facility] ER one week ago for evaluation. States he had a phys ical exam but did not find evidence of herpes so they did not do any further testing. Has never had symptoms like this before. ROS Musculoskeletal: denies injury, chronic back pain, strenuous activities or heavy lifting PAST MEDICAL HISTORY Diagnosis Date - Chronic daily headache PAST SURGICAL HISTORY Procedure Laterality Date - NONE ALLERGIES Patient has no known allergies. MEDICATIONS No prescriptions on file. FAMILY HISTORY Problem Relation Age of Onset - Headache Father Occasional headaches - Hypertension Father - Hypertension Mother - Headache Sister Jayden IH Social History Tobacco Use - Smoking status: Current Every Day Smoker Packs/day: 0.50 Types: Cigarettes - Smokeless tobacco: Never Used Substance Use Topics - Alcohol use: Yes Frequency: Monthly or less Drinks per session: 5 or 6 Binge frequency: Less than monthly Comment: RARE - Drug use: Yes Types: Marijuana Comment: MJ occasionally PHYSICAL EXAM BP 140/100 Pulse 72 Temp (!) 35.8 ?C (96.5 ?F) (Temporal ) Resp 14 Wt 88.5 kg (195 lb) SpO2 97% BMI 27.20 kg/m? General Appearance: well appearing, in no acute distress, al ert Lungs: lungs clear to auscultation. No wheezing, rhonchi, ra les Heart: RRR without murmur, gallop, or rubs. No ectopy Abdomen: Soft, non-distended. mild lower abdomin al tenderness with palpation. No guarding or rebound tenderness. Bowel sounds normal and active. No masses, organomegaly. CVA tenderness absent Male Genitourinary: Penis normal. No urethral discharge. Scr otum normal to palpation. No hernia. ASSESSMENT/PLAN: 1. Lower abdominal pain - ICD9: 789.09, ICD10: R10.30 (prima ry diagnosis) Etiology unclear. Differential Diagnosis includes hernia, ST D. No alarm symptoms or exam findings. - UA DIP, URINE (POC) in office normal - US SCROTUM AND CONTENTS stat today - Requested records from [facility] - Follow-up pending results of work-up 2. Testicular pain - ICD9: 608.9, ICD10: N50.819 Check GC/CHLAMYDIA AMPLIF, URINE See plan above - UA DIP, URINE (POC) - US SCROTUM AND CONTENTS 3. Dysuria - ICD9: 788.1, ICD10: R30.0 See #1 and 2 - UA DIP, URINE (POC) - GC/CHLAMYDIA AMPLIF, URINE - US SCROTUM AND CONTENTS 4. Elevated blood pressure reading in of fice without diagnosis of hypertension - ICD9: 796.2, ICD10: R03.0 Possibly due to pain but patient reports issues with elevated BP even prior to this. Recommend establishing care with P CP for further evaluation and complete physical. Prescription instructions reviewed with patient as madie licable. Potential red flag symptoms discussed with the patient. Review ed appropriate action plan to take if red flag symptoms occur. Patient agreeable to treatm ent plan. Taisha Galeano APRN.TWIN Referring Provider: SELF [200] Allergies As of Date: 01/22/2019 (No Known Allergies) Date Reviewed: 01/22/2019 Reviewed by: Mayelin Hsu Quality Assurance Manager - Fully Assessed Reason for Visit: lower abdomen pain [Other] Groin Pain [1378] Primary Visit Diagnosis:Lower abdominal pain [R10.30] Other Visit Diagnoses:Testicular pain [N50.819] Dysuria [R30.0] Elevated blood pressure reading in office without diagnosis of hypertension [R03.0] Order(s):UA DIP, URINE (POC) [[id number]] Order #: [id number]. #:[id number] GC/CHLAMYDIA AMPLIF, URINE [SQUGCCT] Order #: [id number] FUT URE US SCROTUM AND CONTENTS [1074830] Order #: [id number] FUTURE Problem List As Of Date 01/22/2019 Noted Resolved Migraine without aura, not intractable, with st*10/07/2017 Chronic migraine [G43.709] 12/15/2017 Chronic daily headache [R51] 12/15/2017 Medications Discontinued During This Encounter SUMAtriptan (IMITREX) 100 mg tablet 9 ta* 3 12/15/20172018 Sig: Take 1 po by mouth for severe headache. Repeat ONCE in 2 hours PRN; max dose is 200 mg/day. Do not use on more than 2 days per week. Disc: Course of therapy completed nortriptyline (PAMELOR) 10 mg capsule 60 c* 3 12/15/201701/22/2019 Route: ORAL Sig: Take 1-2 capsules by mouth daily at bedtime. Disc: Course of therapy completed Encounter Status:Closed by TAISHA GALEANO CNP on 01/22/19 ua on 2018-12-01 Color (U) Yellow Normal 12-01-2018 [facility] ([place]) ([id number]) Comment: Performed By: #### UA, UAMIC AO #### [address] [address] Glucose (U) [Mass/Vol] Negative Negative mg/dL Normal 019 [facility] ([place]) ([address]12) Comment: Performed By: #### UA, UAMIC AO #### [address] [address] Ketones Ql (U) Negative Negative Normal 12-01-2018 [facility] ([place]) ([id number]) Comment: Performed By: #### UA, UAMIC AO #### [address] [address] UA Appear Clear Clear Normal 12-01-2018 [facility] ([place]) (18309) Comment: Performed By: #### UA, UAMIC AO #### [address] [address] UA Blood Negative Negative Normal 12-01-2018 [facility] ([place]) ([address]) Comment: Performed By: #### UA, UAMIC AO #### [address] [address] UA Leuk Est Negative Negative Normal 12-01-2018 [facility] ([place]) ([id number]) Comment: Performed By: #### UA, UAMIC AO #### [address] [address] UA Nitrite Negative Negative Normal 12-01-2018 [facility] ([place]) (15046) Comment: Performed By: #### UA, UAMIC AO #### [address] [address] UA pH 5.5 5.0 - 8.0 Normal 12-01-2018 [facility] ([place]) (97657) Comment: Performed By: #### UA, UAMIC AO #### [address] [address] UA Protein 30 Negative mg/dL Normal 12-01-2018 [facility] ([place]) ([address]808) Comment: Performed By: #### UA, UAMIC AO #### [address] [address] UA Spec Grav >=1.030 1.015-1.025 Abnormal 12-01-2018 [facility] ([place]) ([id number]) Comment: Performed By: #### UA UAMIC AO #### [facility] [place] [address] [place] [address] UA Specimen Type Clean Catch Normal 12-01-2018 [facility] ([place]) ([id number]) Comment: Performed By: #### UA UAMIC AO #### [facility] [place] [address] [place] [address] UA Urobilinogen 0.2 0.2-1.0 E.U./dL Normal 12-01-2018 [facility] ([place]) ([id number]) Comment: Performed By: #### UA UAMIC AO #### [place] [address] Urobilinogen Qn (U) Negative Negative Normal 12-01-2018 [facility] ([place]) ([address] 0) Comment: Performed By: #### UA UAMIC AO #### [place] [address] ct abdomen/pelvis w/o contrast on 2018-12-01 CT ABDOMEN/PELVIS ORIGINAL Normal 12-01-2018 A [facility] W/O CONTRAST CT ABDOMEN/PELVIS W/O CONTRAST [facility] ([place]) ([id number]) CLINICAL STATEMENT: RIGHT flank pain COMPARISON: CT abdomen pelvis 10/19/2012 TECHNIQUE: Axial images were obtained from the lung bases through the pubic symphysis. Coronal reformatted images were generated from the axial dataset. This exam was performed according to our [facility] am, and includes the following measures where applicable: automated exposure control, adjustment of the mAs and/or kVp according to patient size and/or exam, and an iterative reconstruction algorithm. FINDINGS: There is no hydrou reteronephrosis. There is a 3 mm nonobstructing calculus in the LEFT kidney. There is no calculi referable to the RIGHT urinary tract. There is no mass distorting the cortica l outline of the kidneys. No bladder calculi are visible. The visualized liver and spl een are unremarkable for noncontrast examination. The noncontrasted gallbladder, pancreas and adrenal glands are normal. The small and large bowel are nondilated. There is no abdominal aortic aneurysm. There is no free fluid or fr ee air. No adenopathy is identified. There are no suspicious osseous lesions. IMPRESSION: No obstructive uropathy. Nonobstructing 3 mm LEFT renal calculus. I have personally reviewed t he images of this examination and agree with the resident's findings and interpretation. Interpreted By: Telly Lafleur MD Preliminary Report By: Sylvain Anton MD Electronically Signed By: Telly Lafleur MD Dictated Date: 12/01/2018 9:14:35 PM Prelim Date: 12/01/2018 9:16:54 PM Sign Date: 12/01/2018 9:49:57 PM Ordering Provider:Ben Elam .urinalysis microscopic (ao) on 2018-12-01 RBC (U) [#/Vol] None Seen None Seen Normal 12-01-2018 [facility] ([place]) (0000 0) Comment: Performed By: #### UA, UAMIC AO #### [address] [address] UA Mucous 1+ /hpf Normal 12-01-2018 [facility] ([place]) ([id number]) Comment: Performed By: #### UA, UAMIC AO #### [address] [address] UA Squam Epithelial None Seen None Seen Normal 12-01-2018 [facility] ([place]) (0000 0) Comment: Performed By: #### UA, UAMIC AO #### [address] [address] UA WBC 0-5 None Seen Abnormal 12-01-2018 [facility] ([place]) ([id number]) Comment: Performed By: #### UA, UAMIC AO #### [address] [address] Vital Signs Vital Sign Description Value / Unit Date Location The following section is limited to 5 en tries per type and includes entries from the following time range: 20191021 - 3. BP Diastolic 90 mm[Hg] 10-21-2019 [facility] ([id number]) BP Systolic 130 mm[Hg] 10-21-2019 [facility] ([id number]) Encounters Date Type Reason Provider Location 10-21-2019 - Patient encounter Essential Mickey ([place]) Internal 10-21-2019 procedure hypertension [facility] [facility] Comment: Essential hypertension (Prim lisa Dx); Heartburn; Anxiety 10-20-2019 - 10-20-2019 Patient encounter External Pro vider [facility] procedure 10-20-2019 - 10-20-2019 Results Only External Provider External-Non[facility] 11-11-2019 - 11-11-2019 Telephone encounter Brenda vazquez [facility] [place] Comment: Blood Pressure Check Procedures Procedure Name Date Provider Location EXTERNAL IMAGING 10-20-2019 External Provider [facility] ([id number]) EXTERNAL LAB 10-20-2019 External Provider [facility] ([id number]) Plan of Treatment Plan Description Date Location BP CONTROLLED (<130/80) BP CONTROLLED (<130/80) 11-10-2020 [facility] ([id number]) ANNUAL PCP TEAM CHRONIC ANNUAL PCP TEAM CHRONIC 10-20-2020 - [facility] DISEASE VISIT DISEASE VISIT 10-20-2020 ([id number]) ONE PNEUMOVAX PRIOR TO ONE PNEUMOVAX PRIOR TO 09-22-2020 - [facility] AGE 63 AGE 63 09-22-2020 ([id number]) Comment: Postponed from 2012 (D eclined at this time) DTAP,TDAP,TD (1 - Tdap) DTAP,TDAP,TD (1 - Tdap) 09-22-2020 - [facility] 09-22-2020 ([id number]) Comment: Postponed from 2012 (D eclined at this time) INFLUENZA (#1) INFLUENZA (#1) 2019 - [facility] 10-19-2019 ([id number]) BP CONTROLLED BP CONTROLLED 10-29-2011 - [facility] (<130/80) (<130/80) 10-29-2011 ([id number]) HPV VACCINE (1 - Male HPV VACCINE (1 - Male 2004 - [facility] 2-dose series) 2-dose series) 2004 (10800) no information [facility] ([id number]) Social History Type Social History Date Location Description Tobacco smoking status Current every day smoker 10-21-2019 - [facility] NHIS 11-11-2019 ([id number]) History of tobacco use Cigarette Smoker [facility] ([id number]) Cigarettes smoked 10-21-2019 - [facility] current (pack per day) 11-11-2019 (54493) - Reported Tobacco use and Never used 10-21-2019 - [facility] exposure 11-11-2019 ([id number]) Alcohol intake Current drinker of 10-21-2019 - [facility] alcohol (finding) 11-11-2019 (58762) History SDOH Alcohol 2 01-22-2019 - [facility] Frequency 01-22-2019 (81273) History SDOH Alcohol 3 01-22-2019 - [facility] Std Drinks 01-22-2019 ([id number]) Alcohol Comment RARE 12-15-2017 - [facility] 12-15-2017 ([id number]) Sex Assigned At Not on file [facility] ([id number]) Exposure to SARS-CoV-2 Not sure [facility] (event) (77261) The following information is from the original human readable contentNo Social History Records FoundNo Social History Records FoundNo Social History Records Found Summary Purpose Family History No Family History Records FoundNo Family History Records Found Advance Directives No Advanced Directives Records FoundNo Advanced Directives Records Found History of Present Illness Mickey Albarran ([place]) - 10/21/2019 2:59 PM EDT CC: Patient presents with: Follow Up: medication follow up HPI Abel Kurtz is a 23 year old male who presents today for recheck BP and medication follow up. HTN: Compliant with and tolerating amlodipine. Denies headaches, chest pain or edema. Cut out energydrinks. Watching salt intake. No regular exercise. BP remains mildly elevated today. Anxiety: Started on Buspar ~1 month ago after noting feeling anxious all day with intermittent chestpains and SOB. Today he reports symptoms are improved or resolved. No longer experiencing chest pain. Sleep is described as good. GERD: During our last visit patient complained of abdominal burning, started on omeprazole. Today hereports symptoms have resolved with medication. Note he eliminated caffeine/energy drinks as well. REVIEW OF SYSTEMS General: no change in appetite HEENT: no frequent or significant headaches Cardiovascular: no chest pain, no chest pressure and no palpitations GI: No nausea, vomiting, or diarrhea and No heartburn or reflux symptoms Psych: Positive for anxiety: see HPI See HPI PAST MEDICAL HISTORY Diagnosis Date ? Chronic daily headache ? HTN (hypertension) PAST SURGICAL HISTORY Procedure Laterality Date ? NONE ALLERGIES Patient has no known allergies. MEDICATIONS amLODIPine (NORVASC) 5 mg tablet Take 1 tablet by mouth once daily. busPIRone (BUSPAR) 5 mg tablet Take 1 tablet by mouth twice daily. omeprazole (PRILOSEC) 20 mg capsule Take 1 capsule by mouth daily before breakfast. carbamide peroxide (DEBROX) 6.5 % otic solution Use 5 Drops in the left ear twice daily. FAMILY HISTORY Problem Relation Age of Onset ? Headache Father Occasional headaches ? Hypertension Father ? Hypertension Mother ? Headache Sister Chielisabeth, IH with surgery ? No Known Problems Brother ? No Known Problems Maternal Grandmother ? Hypertension Maternal Grandfather ? No Known Problems Paternal Grandmother ? No Known Problems Paternal Grandfather ? No Known Problems Brother Social History Tobacco Use ? Smoking status: Current Every Day Smoker Packs/day: 0.50 Types: Cigarettes ? Smokeless tobacco: Never Used Substance Use Topics ? Alcohol use: Yes Frequency: Monthly or less Drinks per session: 5 or 6 Binge frequency: Less than monthly Comment: RARE ? Drug use: Yes Types: Marijuana Comment: MJ occasionally PHYSICAL EXAM BP (P) 140/84 Pulse (P) 80 Temp (P) 36.2 ?C (97.1 ?F) (Temporal) Resp (P) 16 Wt (P) 93 kg (205 lb) SpO2 (P) 98% BMI (P) 28.59 kg/m? General Appearance: well appearing, in no acute distress, alert Pysch: mood and affect broad and appropriate Skin: Skin color, texture, turgor normal for age; Head: normocephalic, atraumatic Lungs: Lungs clear to auscultation. No wheezing, rhonchi, rales. Heart: RRR without murmur, gallop, or rubs. No ectopy HPV VACCINE(1 - Male 2-dose series) due on 2004 BP CONTROLLED (<130/80) due on 10/29/2011 INFLUENZA(1) due on 10/19/2019 DTAP,TDAP,TD(1 - Tdap) due on 09/22/2020 ONE PNEUMOVAX PRIOR TO AGE 65 due on 09/22/2020 ANNUAL PCP TEAM CHRONIC DISEASE VISIT due on 09/22/2020 [employer]INGOCO[employer] Completed HEPATITIS C SCREENING Completed HIV SCREENING Completed ASSESSMENT/PLAN: 1. Essential hypertension - ICD9: 401.9, ICD10: I10 (primary diagnosis) - suboptimal control - Increase amlodipine (Norvasc) - Encouraged dietary sodium restriction/DASH diet - Recommended regular aerobic exercise. - Follow up in 1 month for BP recheck. - Goal of BP <130/80 - Recommended no refined sugar, low refined starch, healthy oil intake (olive oil), healthy protein (fish) along the lines of the Mediterranean diet. - AMLODIPINE 10 MG TABLET 2. Heartburn - ICD9: 787.1, ICD10: R12 - Symptoms resolved with current treatment - Continue omeprazole for total of 3 months, contact office for recurrent symptoms 3. Anxiety - ICD9: 300.00, ICD10: F41.9 - Stable - Continue current medications - Follow up in 1 year, sooner for new or worsening symptoms - BUSPIRONE 5 MG TABLET Prescription instructions reviewed with patient as applicable. Potential red flag symptoms discussedwith the patient. Reviewed appropriate action plan to take if red flag symptoms occur. Patient agreeable to treatment plan. Mickey Albarran APRN.TICKET SALES SUPERVISOR documented in this encounter Assessments Diagnosis Essential hypertension - Primary Unspecified essential hypertension Heartburn Anxiety Anxiety state, unspecified Additional Source Comments FOR RECORDS PERTAINING TO PATIENTS WHO ARE OR HAVE BEEN ENROLLED IN A CHEMICAL DEPENDENCY/SUBSTANCE ABUSE PROGRAM, SOME INFORMATION MAY BE OMITTED. This clinical summary was aggregated from multiple sources. Caution should be exercised in using it in the provision of clinical care. This summary normalizes information from multiple sources, and as a consequence, information in this document may materially changethe coding, format and clinical context of patient data. In addition, data may be omittedin some cases. CLINICAL DECISIONS SHOULD BE BASED ON THE PRIMARY CLINICAL RECORDS. [email or web address] provides no warranty or guarantee of the accuracy or completeness of information in this document. UNRECOGNIZED CONTENT PROVIDED BELOW FOR UNRECOGNIZED SECTION No Status Records FoundNo Status Records Found UNRECOGNIZED CONTENT PROVIDED BELOW FOR UNRECOGNIZED SECTION INFORMATION SOURCE DATE CREATED AUTHOR AUTHOR'S ORGANIZATIO N 10/15/2019 [facility] ([place]) DATE CREATED AUTHOR AUTHOR'S ORGANIZATIO N 11/16/2019 [facility] UNRECOGNIZED CONTENT PROVIDED BELOW FOR UNRECOGNIZED SECTION Source Comments In the event this information is protected by the Federal Confidentiality of Alcohol and Drug Abuse Patient Records regulations: The Federal rules restrict any use of the information to criminally investigate or prosecute any alcohol or drug abuse patient.[facility] the event this information is protected by the Federal Confidentiality of Alcohol and Drug Abuse Patient Records regulations: The Federal rules restrict any use of the information to criminally investigate or prosecute any alcohol or drug abuse patient.[facility] the event this information is protected by the Federal Confidentiality of Alcohol and Drug Abuse Patient Records regulations: The Federal rules restrict any use of the information to criminally investigate or prosecute any alcohol or drug abuse patient.[facility] Center[facility] the event this information is protected by the Federal Confidentiality of Alcohol and Drug Abuse Patient Records regulations: The Federal rules restrict any use of the information to criminally investigate or prosecute any alcohol or drug abuse patient.[facility] UNRECOGNIZED CONTENT PROVIDED BELOW FOR UNRECOGNIZED SECTION Reason for Visit Reason Comments Follow Up medication follow up Status Reason Specialty Diagnoses / Referred By Referred To Procedures Contact Contact Authorized Patient Cleared Family Practice Diagnoses Left side pain temp 98.2 Self Benita, - Qualified / URGENT CARE Procedures URGENT CARE [place] 100% [facility] [address] [place] [address] Reason Onset Date Comments Blood Pressure Check 11/11/2019 UNRECOGNIZED CONTENT PROVIDED BELOW FOR UNRECOGNIZED SECTION Miscellaneous Notes Telephone Encounter - Mendoza Blanton LPN - 11/15/2019 5:00 PM EDTPatient notified. Mendoza Blanton LPN elephone Encounter - Mayelin Hsu Cma - 11/12/2019 3:40 PM EDTLeft message for patient to call office back and to ask to speak with a nurse. Mayelin Hsu Cma elephone Encounter - Brenda Rodriguez - 11/12/2019 2:03 PM EDTbp is good, cont the same medication. elephone Encounter - Christie Solomon LPN - 11/11/2019 10:56 AM EDTManual Readin/92 Pulse: 58 BP Bhavik average: 120/73 P: 59 Repeat BP Check: 117/71 P59 #1 121/69 P59 #2 117/74 P60 #3 119/72 P59 #4 116/74 P57 #5 125/77 P60 #6 Reason for blood pressure check - Last BP elevated and Medication adjustment Patient is: Taking medication as prescribed Yes Took medication today Yes If no, date medication last taken N/A Experiencing side effects No BP was elevated at last appt 10/21/2019. Amlodipine was increased to 10mg daily at that time. Tolerating medication change well. Does report that he has some returning stomach irritation since stopping the Omeprazole. Did suggest Gaviscon tablets if needed. Denies any chest pain, shortness of breath, dizziness, or headaches. Daily caffeine use. Current everyday tobacco use. Alert and oriented. Pt has been identified by name and birthdate: Yes Allergies reviewed: Yes Latex allergy: no. Medication - prescribed and OTC reviewed and updated: Yes Do you need any prescription refills prior to your next visit: No Health Maintenance: Reviewed and not up to date and provider notified Patient advised to continue with current medications and would be contacted if any further instructions after review by PCP. Christie Solomon LPN documented in this encounter
== END | disposition home or self-care (01) ==
LOC: LABSPEC 14:25
PROVIDERS: Referring Provider Nurse Practitioner; Visit Provider Nurse Practitioner
DX: R07.9 Chest pain, unspecified (principal)
CPT/HCPCS: 85379

== ENCOUNTER 2019-08-05 13:35 | Emergency (ER) | payer SELFPAY ==
[2019-08-05 13:36] VITALS: BP 156/125; PULSE 68; RESP 18; TEMP 36.1; O2SAT 97; BMI 27.9
--- NOTE | 2019-08-05 13:45 | CT_ITS ---
STUDY: CT BRAIN WITHOUT CONTRAST REASON FOR EXAM: Male, 23 years old. STEELE TODAY WITH N/T TO HANDS AND FACE RADIATION DOSAGE (If Supplied By Facility): CTDIvol = ( 60.81 ) mGy, DLP = ( 1044.28 ) mGycm TECHNIQUE: Transaxial CT imaging of the brain was performed without administration of intravenous contrast material. Individualized dose optimization techniques were used for this CT. COMPARISON: No relevant priors. FINDINGS: Normal soft tissue structures. Normal calvarium. Normal size ventricles and extra-axial spaces for the patient''s age. Normal white matter tracts of the cerebral hemispheres. Normal basal ganglia and thalami. Normal brainstem. Normal cerebellum. There is no intracranial hemorrhage. There are no findings of an acute ischemic infarction. Mucosal thickening of the ethmoid sinuses bilaterally. CT/Brain/Head without Contrast IMPRESSION: Normal unenhanced CT scan of the brain. Electronically Signed: Shivam Day, at 15:18 EDT , Service support ,
--- NOTE | 2019-08-05 13:55 | ED.VIS.GEN ---
History of Present Illness Chief Complaint: Headache Informant: Patient Onset: Today Context: Sudden Onset Timing: Continuous Current Severity: Moderate Maximum Severity: Moderate Narrative: The patient is an otherwise healthy 23-year-old male that presents to the emergency department with headache. The patient states that he was going to move his bowels today. He states he got sudden onset headache with facial pressure and tingling in both hands. He states that he has had this before, but has not had a headache like this in a year. He did recently start following with primary care and was found to be hypertensive, but has not started on any medications. He denies any family history of aneurysm. He had no loss of consciousness or seizure activity. Prior similar symptoms: Yes Recent Illness/Hospitalization: No Past Medical History - Allergies and Home Meds Allergies/Adverse Reactions: Allergies latex Allergy (Verified 01/15/19 13:11) Rash Primary Care Physician: Care Physician,No Primary [NON-STAFF] - Prior records reviewed: Yes Past Medical History: None Surgical History: no surgical history Smoking Status: Current every day smoker Review of Systems General: Denies: Chills, Fever, Sweats Eyes: Denies: Visual changes - bilaterally, Diplopia ENT: Denies: Rhinorrhea, Sore throat Cardiovascular: Denies: Chest pain, Palpitations Respiratory: Denies: Dyspnea, Cough, Dyspnea on exertion Gastrointestinal: Denies: Abdominal pain, Nausea, Vomiting, Diarrhea, Melena, Hematochezia Genitourinary: Denies: Dysuria, Hematuria, Frequency Musculoskeletal: Denies: Back pain, Extremity Pain Skin: Denies: Rash, Wounds Neurological: Denies: Headache, Weakness, Numbness Physical Exam Vital Signs/Narrative: Vital Signs Temp Pulse Resp BP Pulse Ox 08/05/19 13:36 97 F L 68 18 156/125 H 97 Inital Vital Signs reviewed: Yes General: Well nourished, Well developed, No Acute Distress Head: Normocephalic, Atraumatic Eyes: Perrl, EOMI ENT: Moist mucous membranes, No rhinorrhea Neck: Supple, Nontender Cardiovascular: Regular rate, Regular rhythm, No murmurs Respiratory: No distress, CTA bilaterally, Chest nontender Abdomen: Soft, Nontender, Nondistended, Normal bowel sounds Back: Nontender, Normal Inspection Extremities: Nontender, No edema Skin: Normal color, No rash Neurological: Alert, Oriented x3, Cranial nerves II-XII grossly intact, Normal Strength, Normal Sensation Psychological: Normal affect, Normal Mood Diagnostic/Tx/Re-eval Clinical Impression(s) from Imaging Studies Brain CT 08/05/19 13:45 IMPRESSION: Normal unenhanced CT scan of the brain. Electronically Signed: Shivam Day, at 15:18 EDT , Service support , Abnormal Lab Results 08/05/19 08/05/19 14:40 14:40 WBC 8.8 RBC 5.02 Hgb 14.9 Hct 43.7 MCV 87.1 MCH 29.7 MCHC 34.1 RDW Std Deviation 38.1 RDW Coeff of Ezra 12.0 Plt Count 315 MPV 9.0 Immature Gran % (Auto) 0.300 Neut % (Auto) 51.4 Lymph % (Auto) 39.0 Calhoun % (Auto) 5.0 Eos % (Auto) 3.7 Baso % (Auto) 0.6 Absolute Neuts (auto) 4.5 Absolute Lymphs (auto) 3.45 Nucleated RBC % 0 Sodium 140 Potassium 3.5 Chloride 108 H Carbon Dioxide 24.0 Anion Gap 8 BUN 10 Creatinine 1.06 Estim Creat Clear Calc 110.00 Est GFR (MDRD) Af Amer 109 Est GFR (MDRD) Non-Af 90 BUN/Creatinine Ratio 9.4 L Glucose 121 H Calcium 8.9 - Medical Decision Making Patient presents with headache. He has a reassuring neurologic exam, is not encephalopathic, and is not meningitic. His headaches do worsen with Valsalva and then improve when he lays down. There is no history of aneurysm. Patient declined any IV medication. He was given oral Tylenol. Metabolic work-up was initiated and was found to be unremarkable. Noncontrast head CT was negative. Patient's headache has started within the past 2 hours with a negative noncontrast head CT, therefore I do not suspect subarachnoid hemorrhage. My suspicion that this is likely secondary to the patient's uncontrolled hypertension. After long discussion with the patient, we are going to start him on low-dose antihypertensives and he will follow-up with his primary care. He is comfortable with this plan of care. Impression 1. Headache 2. Hypertension ED Disposition - Plan for ED Patient: Instructions: ED Headache Unspecified Prescriptions: Amlodipine [Norvasc] 2.5 mg PO DAILY #30 tab Prescription Printed Referrals: Care Physician,No Primary [NON-STAFF] -
[2019-08-05 14:47] LABS: Absolute Lymphocyte Count 3.45 X10^3/uL (0.83-4.51); Absolute Neutrophil Count 4.5 X10^3/uL (2.0-7.7); Basophil# 0.05 X10^3/uL; Basophil% 0.6 % (0-1); Eosinophil# 0.33 X10^3/uL; Eosinophils% 3.7 % (0-5); Hematocrit 43.7 % (40-54); Hemoglobin 14.9 g/dL (13.0-16.5); Lymphocyte # 3.45 X10^3/ul (4.0); Mean Corp Hgb Conc 34.1 g/dL (32-36); Mean Corpuscular Hgb 29.7 pg (27.0-32.0); Mean Corpuscular Volume 87.1 fL (80-94); Monocyte# 0.44 X10^3/uL; NRBC Flagged by Analyzer 0 % (0-5); Neutrophil # 4.54 X10^3/uL (2.7-7.7); Neutrophil % 51.4 % (47-70); Platelet Count 315 K/mm3 (150-450); RBC Distribution Width SD 38.1 fl (35.1-43.9); Red Blood Count 5.02 M/mm3 (4.6-6.2); White Blood Count 8.8 K/mm3 (4.4-11.0)
[2019-08-05] MEDS: Acetaminophen 500 MG Tablet 1000 MG PO (14:51)
[2019-08-05 15:00] LABS: Anion Gap 8 (5-15); BUN 10 mg/dL (7-18); BUN/Creat Ratio 9.4 RATIO (10-20); Calcium,Total 8.9 mg/dL (8.5-10.1); Chloride 108 mmol/L (98-107); Creatinine, Serum 1.06 mg/dL (0.70-1.30); EST Glomerular Filtration Rate 90 mL/min (>60); Est Glom Filt Rate - Afr Amer 109 mL/min (>60); Glucose 121 mg/dL (74-106); Potassium 3.5 mmol/L (3.5-5.1); Sodium Level 140 mmol/L (136-145)
[2019-08-05 15:56] VITALS: PULSE 80; RESP 16; RESP 17; O2SAT 100
== END 2019-08-05 16:01 | disposition home or self-care (01) ==
LOC: ED 14:32
PROVIDERS: Emergency Provider Emergency Medicine; PCP Nurse Practitioner
DX: R51 Headache (principal); I10 Essential (primary) hypertension; F17.200 Nicotine dependence, unspecified, uncomplicated
CPT/HCPCS: 70450; 80048; 85025; 99284

== ENCOUNTER 2019-09-27 12:36 | Emergency (ER) | payer SELFPAY ==
[2019-09-27 12:36] VITALS: BP 129/72; PULSE 62; RESP 18; TEMP 36.4; O2SAT 99; BMI 28.6
--- NOTE | 2019-09-27 14:13 | ED.RN ---
CALLED FOR PT AT 1400, NO ANSWER, SCREENER REPORTS PT STORMED OUT JUST PRIOR TO BEING CALLED
== END 2019-09-27 14:14 | disposition left against medical advice (07) ==
PROVIDERS: Emergency Provider Emergency Medicine; PCP Nurse Practitioner
DX: Z53.21 Procedure and treatment not carried out due to patient leaving prior to being seen by health care provider (principal)

== ENCOUNTER 2020-09-05 07:03 | Day surgery (SDC) | payer MEDICAID, SELFPAY ==
[2020-08-17 07:18] VITALS: BMI 28.8
[2020-09-05] VITALS (7 sets, daily range): BP systolic 92–125; BP diastolic 42–85; PULSE 47–59; RESP 16–18; TEMP 36.3–36.6; O2SAT 96–100; BMI 27.8
--- NOTE | 2020-09-05 | GASB_PTH ---
PATIENT: ABEL HERRERA LOC: [facility] U#:[id number] AGE/SX: 24/M ROOM: RE09/05/[address]: Dr. Florencio Lim MD : 1995 BED: DIS: 09/05/2020 SPEC #: [id number] RECD: 09/05/20 13:02 STATUS: ADOLFO DARIEL #: [id number] BRENNAN: 09/05/20 00:[address]: Florencio Lim DEPT: SURGICAL PATHOLOGY RECD BY: Lowell Mcgregor ENTERED: 09/05/20 13:02 SP TYPE: Gastric Bx ANYI DR: Dr. Yolanda Lin MD Tissues: A - Gastric mucous membrane B - Esophageal mucous membrane Procedures: Special Stain Group II Surgery Specimen Level IV Alcian Blue/PAS (control) HEADER OPERATION: EGD ? PH probe (MAC) PRE-OP DIAGNOSIS: GERD TISSUE SUBMITTED: A ? Antrum for path and H. pylori, B ? Distal esophagus MICROSCOPIC DIAGNOSIS A. Gastric antrum, biopsy: Chronic gastritis, moderate to severe. See comment. B. Distal esophagus, biopsy: Gastroesophageal junctional mucosa with mild chronic inflammation consistent with changes of reflux. No conclusive goblet cell metaplasia. See comment. AM:ivan 09/06/2020 COMMENT A. The results of immunohistochemistry for Helicobacter pylori will be reported separately ([id number]). B. Alcian blue/PAS stain with matched control supports the above diagnosis. MICROSCOPIC DESCRIPTION Slides are reviewed. GROSS DESCRIPTION A - Received in fixative is one container labeled with the patient's name and designated antrum. The specimen consists of one irregular fragment of light carolina soft tissue that measures 0.3 x 0.3 x 0.1 cm. The specimen is totally submitted in one cassette. B - Received in fixative is one container labeled with the patient's name and designated distal esophagus. The specimen consists of multiple irregular fragments of light carolina soft tissue that in aggregate measure 2 x 0.5 x 0.1 cm. The specimen is totally submitted in one cassette. / SJ:ivan 09/05/20 TC:3 CPT: 38128 x2, 88404
--- NOTE | 2020-09-05 07:16 | PCM.HP.BLA ---
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: No Is patient in pain?: No Allergies latex Allergy (Verified 08/17/20 10:01) Rash Medications amlodipine 10 mg tablet 10 mg PO DAILY #90 tab 07/19/20 [Rx Confirmed 08/17/20] buspirone 5 mg tablet 5 mg PO BID #180 tab 07/19/20 [Rx Confirmed 08/17/20] omeprazole 20 mg capsule,delayed release 20 mg PO DAILY #90 cap 07/19/20 [Rx Confirmed 08/17/20] sertraline 100 mg tablet 100 mg PO DAILY #90 tab 07/19/20 [Rx Confirmed 08/17/20] PFSH Medical History Anxiety Back problem GERD (gastroesophageal reflux disease) History of kidney stones Hypertension Scoliosis Seasonal allergies Family History Uncle Diabetes Grandmother Diabetes Myocardial infarction, Onset Age: 58 Mother Kidney disease Other Anxiety Arthritis Hypertension Social History Smoking Status: Former smoker quit date: 03/20/20 Tobacco: How many years used: 8 alcohol intake: current alcohol intake frequency: a few times a month Alcohol type: beer substance use type: does not use what type of physical activity do you participate in: none HPI HPI HPI: ABEL HERRERA, is a 24 M who presents to the office today for surgical consultation regarding extended period of time of symptomatic esophageal reflux disease. The patient has been on a proton pump inhibitor. Because of this at age 24 he is referred by Dr. Yolanda Lin for surgical consultation and evaluation. The current goal is to hopefully be able to alleviate the requirement of that medication. A written copy of my surgical consultation will be returned to Dr. Lin. Very pleasant young gentleman. 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 For at least a year initially prescribed by Dr. Ceci carlson he has been on omeprazole therapy. He finds this almost the requirement to help assist with severe heartburn and reflux. He has not had any abdominal surgical procedures. His chronic medical conditions include hypertension anxiety. He is on Zoloft and BuSpar own. He had been a previous cigarette smoker but now he continues to vape with a nicotine product. ROS General General: No weight change, appetite, fatigue, colon cancer, breast cancer or weakness HEENT HEENT: No difficulty swallowing, eye injury, eye surgery, swollen glands or hoarseness Endo Endocrine: No thyroid disease, diabetes mellitus, thyroid cancer, Hair loss, heat intolerance or cold intolerance Musc Musculoskeletal: Yes back problems; No arthritis, rheumatoid arthritis, gout or joint pain Cardio Cardiovascular: Yes high blood pressure; No murmur, pacemaker, heart disease, atrial fibrillation, heart attack, heart stent, palpitations, shortness of breat with exertion or chest pain Psych Psychiatric: Yes anxiety; No depression or hearing voices Resp Respiratory: No shortness of breath, No sleep apnea, No cough, No COPD, No asthma, No emphysema and No wheezing Gastro Gastrointestinal: No abdominal pain, No nausea or vomiting, No diarrhea, No constipation, No blood in stool, Yes acid reflux, No hemorrhoids, No ulcers, No gallbladder problem and No black,tarry stools Johnny Hematologic: No blood thinners, No blood disorders, No bleeding, No anemia and No blood clots Neuro Neurologic: No weakness Exam Const General: cooperative, comfortable and no acute distress Nutritional Appearance: average body habitus Orientation: alert and awake HENAL Head: normal to inspection Eyes General: appearance normal, both eyes and all related structures Resp Effort & Inspection: normal respiratory effort Auscultation: clear to auscultation bilaterally Cardio Rate: regular rate Rhythm: regular rhythm GI Palpation: soft and no hepatosplenomegaly Musc Cervical Spine: normal cervical lordosis Neuro General: patient alert and patient awake Extrem General: no calf tenderness bilaterally Psych Thought Process: normal COVID (Procedure Consent) Procedure Criteria Procedure Criteria: Yes Elective The surgeon/proceduralist and patient have discussed in detail the risk of exposure to and/or potential harm posed by the COVID-19 virus with having a surgery/procedure at this time versus the risk of delaying the surgery/procedure. It is not possible to know either the risk of delaying the surgery or procedure or chance of getting an infection with perfect accuracy, but a joint decision was made between the patient and the surgeon/proceduralist to proceed at this time with the scheduled surgery/procedure as indicated on the consent form. Assessment and Plan Assessment and Plan (1) GERD (gastroesophageal reflux disease): Status: Acute Plan - Dr. Florencio Lim MD: The patient is only 24. He has now been a year on a proton pump inhibitor. I concur with the referral from Dr. Yolanda Lin. I recommend to the patient a esophagogastroduodenoscopy with possible biopsy and pH probe placement. I think very much that he might be a future candidate for surgical reflux procedure. This would be far better than multiple year PPI therapy. The patient does have a chronic anxiety issue. He is concerned about making it into the hospital as an outpatient and getting just the IV placed. I assured him that if we could just get the IV in position that with monitored anesthesia care we would be able to easily get him through the procedure. He has had an opportunity to ask and have questions answered. He is interested in scheduling him proceeding. I appreciate very much the opportunity of assisting with the surgical care. Copy: Dr. Yolanda Lim M.D., F.A.C.S. Coding Level of Care Code 85468 Diagnoses GERD (gastroesophageal reflux disease) K21.9 I have re-examined the patient. There are no clinical changes since date of exam.
[2020-09-05] MEDS: Lactated Ringers 1,000 ML 100 ML IV (08:02)
--- NOTE | 2020-09-05 08:30 | IMM_PTH ---
PATIENT: ABEL HERRERA LOC: [facility] U#:[id number] AGE/SX: 24/M ROOM: RE09/05/[address]: Dr. Florencio Lim MD : 1995 BED: DIS: 09/05/2020 SPEC #: [id number] RECD: 09/05/20 13:12 STATUS: ADOLFO REQ #: [id number] BRENNAN: 09/05/20 08:[address]: Florencio Lim DEPT: IMMUNOHISTOCHEMISTRY RECD BY: Mikki Araiza ENTERED: 09/05/20 13:13 SP TYPE: IMMUNO OTHR DR: Dr. Yolanda Lin MD Tissues: A - Stomach, NOS Procedures: H Pylori (initial) PHYSICIAN & INSTITUTION [place] [address] SPECIMEN INFORMATION: Tissue Source: A ? Antrum Clinical Info: GERD Specimen Number: [id number] CPT code: 22144 METHODOLOGY: Deparaffinized sections of prefer/formalin-fixed tissue or PAP/DQ stained slides are incubated with monoclonal/polyclonal antibodies/oligonucleotide probes. Localization is made via biotin free immunoperoxidase method. Appropriate controls are performed and reacted as expected. Results on target cell population are indicated in the following table: RESULTS: ANTIBODY / CLONE RESULT Block A H Pylori (polyclonal) negative These tests were developed and their performance characteristics determined by [facility]. They may not have been cleared or approved by the U.S. Food and Drug Administration. The FDA has determined that such clearance or approval is not necessary. INTERPRETATION: A. Antrum biopsy: Negative for Helicobacter pylori organisms. AM:ivan 09/06/2020
--- NOTE | 2020-09-05 09:04 | OP.EGD_ITS ---
Patient Name: Arnoldo Kurtz Procedure Date: 09/05/2020 8:28 AM Date of : 1995 Age: 24 Procedure: Upper GI endoscopy Indications: Heartburn Providers: Florencio Lim MD Referring MD: Yolanda Lin Medicines: See the Anesthesia note for documentation of the administered medications Complications: No immediate complications. Procedure: Pre-Anesthesia Assessment: - Prior to the procedure, a History and Physical was performed, and patient medications and allergies were reviewed. The patient's tolerance of previous anesthesia was also reviewed. The risks and benefits of the procedure and the sedation options and risks were discussed with the patient. All questions were answered, and informed consent was obtained. Prior Anticoagulants: The patient has taken no previous anticoagulant or antiplatelet agents. ASA Grade Assessment: II - A patient with mild systemic disease. After reviewing the risks and benefits, the patient was deemed in satisfactory condition to undergo the procedure. After obtaining informed consent, the endoscope was passed under direct vision. Throughout the procedure, the patient's blood pressure, pulse, and oxygen saturations were monitored continuously. The gastroscope was introduced through the mouth, and advanced to the second part of duodenum. The upper GI endoscopy was accomplished without difficulty. The patient tolerated the procedure well. Scope In: 8:36:27 AM Scope Out: 8:52:02 AM Total Procedure Duration Time 0 hours 15 minutes 35 seconds Findings: LA Grade A (one or more mucosal breaks less than 5 mm, not extending between tops of 2 mucosal folds) esophagitis with no bleeding was found 41 cm from the incisors. Biopsies were taken with a cold forceps for histology. A small hiatal hernia was present. Diffuse mildly erythematous mucosa without bleeding was found in the gastric antrum. Biopsies were taken with a cold forceps for histology. The examined duodenum was normal. The CARREON capsule with delivery system was introduced through the mouth and advanced into the esophagus, such that the CARREON pH capsule was positioned 35 cm from the incisors, which was 6 cm proximal to the GE junction. The CARREON pH capsule was then deployed and attached to the esophageal mucosa. The delivery system was then withdrawn. Endoscopy was utilized for probe placement and diagnostic evaluation. Impression: - LA Grade A reflux esophagitis. Biopsied. - Small hiatal hernia. - Erythematous mucosa in the antrum. Biopsied. - Normal examined duodenum. Recommendation: - Discharge patient to home. - Resume previous diet. - Continue present medications. - Return to my office in 1 week. Procedure Code(s): --- Professional --- 55394, Esophagogastroduodenoscopy, flexible, transoral; with biopsy, single or multiple Diagnosis Code(s): --- Professional --- K21.0, Gastro-esophageal reflux disease with esophagitis K44.9, Diaphragmatic hernia without obstruction or gangrene K31.89, Other diseases of stomach and duodenum R12, Heartburn CPT copyright 2017 [employer]. All rights reserved. The codes documented in this report are preliminary and upon rnp review may be revised to meet current compliance requirements. Florencio Lim MD 09/05/2020 9:04:06 AM This report has been signed electronically. Number of Addenda: 0 Note Initiated On: 09/05/2020 8:28 AM
--- NOTE | 2020-09-05 09:05 | OP.CCLET_ITS ---
09/05/2020 Yolanda Lin [facility] [address] [place] [address] Re : Upper GI endoscopy procedure for Arnoldo Kurtz Dear Dr. Lin This procedure was performed on Saturday, September 05, 2020. My impressions and recommendations are as follows: Impressions : - LA Grade A reflux esophagitis. Biopsied. - Small hiatal hernia. - Erythematous mucosa in the antrum. Biopsied. - Normal examined duodenum. Recommendations : - Discharge patient to home. - Resume previous diet. - Continue present medications. - Return to my office in 1 week. My findings are described in the full procedure note, which is enclosed. If I can be of further assistance, please feel free to contact me at Doctor phone number(s): Work: . Sincerely, Florencio Lim MD 09/05/2020 9:04:06 AM This report has been signed electronically.
== END 2020-09-05 09:51 ==
LOC: EN 07:04 → AC 07:04
PROVIDERS: PCP Internal Medicine; Referring Provider Internal Medicine; Visit Provider Surgery
PROC: (CPT 43239; principal; 2020-09-05 08:25)
DX: K21.00 Gastro-esophageal reflux disease with esophagitis, without bleeding (principal); K44.9 Diaphragmatic hernia without obstruction or gangrene; K29.50 Unspecified chronic gastritis without bleeding; K31.89 Other diseases of stomach and duodenum; F17.290 Nicotine dependence, other tobacco product, uncomplicated; I10 Essential (primary) hypertension; F41.9 Anxiety disorder, unspecified; M41.9 Scoliosis, unspecified; Z79.899 Other long term (current) drug therapy
CPT/HCPCS: 43239; 88305; 88313; 88342; J7120; J2405

== ENCOUNTER → 2021-02-15 10:24 | Outpatient (CLI) | payer MEDICAID, SELFPAY | PROVIDERS: PCP Internal Medicine; Visit Provider Physician Assistant | DX: Z11.52 Encounter for screening for COVID-19 (principal) | CPT/HCPCS: 87635; U0003; U0005 ==

== ENCOUNTER 2021-02-27 16:18 | Emergency (ER) | payer MEDICAID, SELFPAY ==
[2021-02-27 16:18] VITALS: BP 144/96; PULSE 79; RESP 16; TEMP 35.8; O2SAT 98; BMI 24.9
--- NOTE | 2021-02-27 16:31 | CT_ITS ---
INDICATION: abdominal pain EXAMINATION: CT Abdomen And Pelvis W/O Contrast Injection TECHNIQUE: Helically acquired images were obtained of the abdomen and pelvis without the use of IV contrast. A radiation dose optimization technique was used for this scan. Oral contrast: None. COMPARISON: None FINDINGS: Evaluation of the solid organs and vascular structures is limited without intravenous contrast. Visualized lung bases: Unremarkable Liver: Unremarkable Gallbladder: Unremarkable Spleen: Unremarkable Pancreas: Unremarkable Adrenal Glands: Unremarkable Kidneys: Unremarkable Vasculature: Unremarkable GI Tract: The appendix is partially visualized and measures 6 mm in diameter which is at the upper limits of normal. There is a slight increase in wall enhancement. No focal fluid collection or free air. Lymphadenopathy: None Peritoneum: No ascites. Bladder: Unremarkable Reproductive organs: Unremarkable Bones/Soft tissues: No suspicious osseous or soft tissue lesions CT/Abdomen/Pelvis without Cont IMPRESSION: The appendix is partially visualized and demonstrates a slight increase in wall enhancement, however there are no significant surrounding inflammatory changes and no dilatation. These findings are equivocal for acute appendicitis. Correlate with clinical findings. No other abnormalities seen in the abdomen or pelvis. Electronically Signed: Narciso Lamb MD at 17:43 EST Tel , Service support ,
--- NOTE | 2021-02-27 16:32 | EX.ED.DYSGE1 ---
HPI History of Present Illness Chief Complaint: Headache Detail of Chief Complaint: Vomiting x2 weeks Informant: patient Narrative Narrative: Patient presents to the emergency department complaint of vomiting over the last 2 weeks. Patient tells me he cannot keep anything down and is thrown up 3-4 times a day. Patient also describes about 1-2 watery stools a day. Patient is lost 16 pounds in last 2 weeks. He denies significant abdominal pain but does describe bloating. He describes intermittent headaches. Patient denies cough or sore throat. Patient thinks he had a fever about 3 days ago of 100.1. Patient states that his daughters have coughs. Patient is vaccinated against COVID. PFSH PFSH Medical History Anxiety Back problem Gastric reflux GERD (gastroesophageal reflux disease) History of kidney stones Hypertension Injury of head and neck Loss of consciousness Migraine headache Scoliosis Seasonal allergies Smoker Home Medications amlodipine 10 mg tablet 10 mg PO DAILY #90 tab 02/27/21 [Rx Last Taken Unknown] lansoprazole [Prevacid] 30 mg PO DAILY 28 Days #28 cap 02/27/21 [Rx Last Taken Unknown] ondansetron 4 mg PO Q8H PRN PRN #10 tab 02/27/21 [Rx Last Taken Unknown] sertraline 100 mg tablet 100 mg PO DAILY #90 tab 02/27/21 [Rx Last Taken Unknown] Allergy/AdvReac Type Severity Reaction Status Date / Time latex Allergy Rash Verified 02/27/21 16:21 Family History Uncle Diabetes Grandmother Diabetes Myocardial infarction, Onset Age: 58 Mother Kidney disease Other Anxiety Arthritis Hypertension Surgical History (Updated 11/23/20 @ 14:28 by Pham Garcia) History of endoscopy Social History Smoking Status: Current some day smoker tobacco type: e-cigarettes Tobacco: How many years used: 8 alcohol intake: current alcohol intake frequency: a few times a month Alcohol type: beer substance use type: does not use what type of physical activity do you participate in: none ROS ROS ED Constitutional Constitutional ED: Reports systems reviewed and no addt'l complaints, except as documented; Denies body ache(s), change in weight or chills Eyes Eyes: Denies acute decrease in peripheral vision, change in vision, double vision or loss of vision ENT ENT ED: Reports none; Denies ear pain, lip swelling, loss taste/smell, neck pain, otalgia or sore throat Cardiovascular Cardiovascular: Reports none; Denies abdominal pain, chest pain with activity, leg edema, lightheadedness, palpitations, rapid heart rate or syncope Respiratory/Chest Respiratory/Chest: Reports none and cough; Denies change in mental status, dry cough, dyspnea, hemoptysis, shortness of breath at rest or shortness of breath with exertion Gastrointestinal Gastrointestinal: Reports none, diarrhea, nausea and vomiting; Denies abdominal pain, change in stool character, hematemesis, hematochezia, melena or rectal bleeding Genitourinary Genitourinary ED: Reports none; Denies abdominal discomfort, anuria, dysuria, genital pain or polyuria Musculoskeletal Musculoskeletal: Reports none; Denies arthralgias, back pain, difficulty walking, extremity pain, muscle weakness or myalgias Integumentary Reports none; Denies abscess or rash Neurologic Neurologic: Reports none and headache(s); Denies abnormal gait, confusion, focal weakness, frequent falls, loss of vision, numbness, paresthesias, radicular pain, vertigo or weakness Psychiatric Psychiatric: Reports systems reviewed and no addt'l complaints, except as documented and none; Denies behavioral changes, confusion, difficulty concentrating, hallucinations, suicidal ideation, tactile hallucinations or visual hallucinations Endocrine Endocrinology: Denies none, cold intolerance, excessive sweating, fatigue or heat intolerance Hematologic/Lymphatic Hematologic/Lymphatic: Reports none; Denies anemia, easy bleeding or easy bruising Allergic/Immunologic Allergic/Immunologic ED: Denies as per HPI, none, lip swelling, mouth swelling, throat swelling, tongue swelling or hives EXAM Physical Exam Const Vital Signs: 02/27/21 16:18 02/27/21 17:05 Temperature 96.5 F L Temperature Source Temporal Pulse Rate 79 67 Respiratory Rate 16 15 Blood Pressure 144/96 H 120/75 Blood Pressure Mean 112 90 Pulse Ox 98 97 Oxygen Delivery Method Room Air Room Air Positive well nourished and well developed General Appearance ED: well developed and NAD HEENT Reports TM's clear and moist mucous membranes normocephalic and atraumatic; Negative for trauma or tenderness Tympanic Membrane ED: Yes TM's clear Eyes PERRL and EOMs intact bilaterally General Eye ED: Negative for pale conjunctiva or scleral icterus Neck no lymphadenopathy, supple and no JVD General: Negative for tenderness Chest Wall inspection of chest normal and palpation of chest normal Chest: Negative for tenderness Resp normal respiratory effort and clear to auscultation bilaterally Effort and Inspection: Negative for respiratory distress or pain with movement Auscultation: Negative for rhonchi, wheezes or diminished lung sounds Cardio regular rate, regular rhythm, S1 normal heart sound, S2 normal heart sound and no murmurs Peripheral Pulses: pulses 2+ throughout GI normal to inspection, nondistended, normoactive bowel sounds, soft to palpation, non-tender, non-distended and no masses Back/Spine no CVA tenderness and no thoracic nor lumbar tenderness Extremity normal to inspection General Extremety ED: Negative for edema General Extremity: Negative for edema Neuro oriented x3, CN's II-XII intact bilaterally, no sensory deficits noted and gait normal Sensorium / Orientation: awake, alert, oriented to person, oriented to place and oriented to time Motor Exam: strength 5/5 throughout and strength abnormal Psych mental status grossly normal Skin no rashes or lesions noted and no wounds MDM MDM MDM Narrative Medical decision making narrative: IV line established on arrival. Patient was given Zofran 4 mg IV. Patient's lab work-up was normal. CT scan without contrast showed a partially visualized appendix with some questionable thickening of the wall of the appendix and recommended clinical correlation. I do not feel clinically patient has appendicitis as he has no pain on abdominal exam currently. Patient is also had symptoms for over 2 weeks. I suspect patient's symptoms may be due to marijuana usage. Patient advised to discontinue marijuana and I will start him on Zofran as well as Prevacid and give referral to GI for follow-up. Patient advised to return if worsening abdominal pain, fever, persistent vomiting, or condition should worsen anyway. Lab Data Attestation: I reviewed the patient's lab results. Labs: Laboratory Results - last 24 hr 02/27/21 02/27/21 02/27/21 16:53 16:53 16:53 WBC 10.9 RBC 4.84 Hgb 14.0 Hct 41.9 MCV 86.6 MCH 28.9 MCHC 33.4 RDW Std Deviation 39.8 RDW Coeff of Ezra 12.8 Plt Count 337 MPV 9.0 Immature Gran % (Auto) 0.200 Neut % (Auto) 72.3 H Lymph % (Auto) 17.7 L Mitchell % (Auto) 8.1 Eos % (Auto) 1.2 Baso % (Auto) 0.5 Absolute Neuts (auto) 7.9 H Absolute Lymphs (auto) 1.92 Nucleated RBC % 0 Sodium 141 Potassium 3.7 Chloride 108 H Carbon Dioxide 27.0 Anion Gap 6 BUN 15 Creatinine 0.87 Estim Creat Clear Calc 139.99 Est GFR (MDRD) Af Amer 136 Est GFR (MDRD) Non-Af 112 BUN/Creatinine Ratio 17.3 Glucose 88 Lactic Acid 0.9 Calcium 9.4 Total Bilirubin 0.70 AST 16 ALT 26 Alkaline Phosphatase 89 Total Protein 7.7 Albumin 4.2 Globulin 3.5 Albumin/Globulin Ratio 1.2 Lipase 95 Radiography Diagnostic Testing: Clinical Impression(s) from Imaging Studies Abdomen/Pelvis CT 02/27/21 16:31 IMPRESSION: The appendix is partially visualized and demonstrates a slight increase in wall enhancement, however there are no significant surrounding inflammatory changes and no dilatation. These findings are equivocal for acute appendicitis. Correlate with clinical findings. No other abnormalities seen in the abdomen or pelvis. Electronically Signed: Narciso Lamb MD at 17:43 EST Tel , Service support , Discharge Plan Triage Chief Complaint: Headache ED Provider: Yaima Maradiaga Dx/Rx/DC Orders Clinical Impression: Vomiting Instructions: ED Marijuana Abuse, ED Vomiting (Adult) Prescriptions: New ondansetron [ondansetron] 4 MG tablet 4 mg PO Q8H PRN PRN (Reason: Nausea) Qty: 10 RF: 0 lansoprazole [Prevacid] 30 mg capsule,delayed release(DR/EC) 30 mg PO DAILY 28 Days Qty: 28 RF: 0 No Action amlodipine 10 mg tablet 10 mg PO DAILY Qty: 90 RF: 1 sertraline [Zoloft] 100 mg tablet 100 mg PO DAILY Qty: 90 RF: 1 Primary Care Provider: Yolanda Lin Referrals: Yolanda Lin MD [Primary Care Provider] - Analy,DO Chris [STAFF PHYSICIAN] - 3-5 Days Disposition Disposition: Home, Self Care
[2021-02-27] MEDS: 0.9% Normal Saline 1,000 ML 1000 ML IV (17:01)
[2021-02-27 17:05] VITALS: BP 120/75; PULSE 67; RESP 15; O2SAT 97
[2021-02-27 17:06] LABS: Absolute Lymphocyte Count 1.92 X10^3/uL (0.83-4.51); Absolute Neutrophil Count 7.9 X10^3/uL (2.0-7.7); Basophil# 0.05 X10^3/uL; Basophil% 0.5 % (0-1); Eosinophil# 0.13 X10^3/uL; Eosinophils% 1.2 % (0-5); Hematocrit 41.9 % (40-54); Lymphocyte # 1.92 X10^3/ul (0.83-4.51); Lymphocyte % 17.7 % (19-41); Mean Corp Hgb Conc 33.4 g/dL (32-36); Mean Corpuscular Hgb 28.9 pg (27.0-32.0); Mean Corpuscular Volume 86.6 fL (80-94); Monocyte# 0.88 X10^3/uL; Monocyte% 8.1 % (0-10); NRBC Flagged by Analyzer 0 % (0-5); Neutrophil # 7.87 X10^3/uL (2.7-7.7); Neutrophil % 72.3 % (47-70); Platelet Count 337 K/mm3 (150-450); RBC Distribution Width CV 12.8 % (11.6-14.6); RBC Distribution Width SD 39.8 fl (35.1-43.9); Red Blood Count 4.84 M/mm3 (4.6-6.2); White Blood Count 10.9 K/mm3 (4.4-11.0)
[2021-02-27 17:33] LABS: Lactic Acid 0.9 mmol/L (0.4-1.9)
[2021-02-27] MEDS: Ondansetron 4 MG/2 ML Vial IV (17:36)
[2021-02-27 17:38] LABS: ALB/GLOB Ratio 1.2 RATIO (0.9-2.4); AST(SGOT) 16 U/L (15-37); Alanine Aminotransfer ALT/SGPT 26 U/L (16-61); Albumin, Serum 4.2 g/dL (3.2-5.0); Alkaline Phosphatase 89 U/L (45-117); Anion Gap 6 (5-15); BUN 15 mg/dL (7-18); BUN/Creat Ratio 17.3 RATIO (10-20); Calcium,Total 9.4 mg/dL (8.5-10.1); Chloride 108 mmol/L (98-107); Creatinine, Serum 0.87 mg/dL (0.70-1.30); EST Glomerular Filtration Rate 112 mL/min (>60); Est Glom Filt Rate - Afr Amer 136 mL/min (>60); Estimated Creatinine Clearance 139.99 ml/min; Globulin 3.5 g/dL (2.2-4.2); Glucose 88 mg/dL (74-106); Lipase 95 U/L (73-393); Potassium 3.7 mmol/L (3.5-5.1); Protein, Total 7.7 g/dL (6.4-8.2); Sodium Level 141 mmol/L (136-145)
[2021-02-27 18:20] VITALS: BP 118/74; PULSE 72; RESP 16; TEMP -8.8; TEMP 16; O2SAT 98
== END 2021-02-27 18:21 | disposition home or self-care (01) ==
PROVIDERS: Emergency Provider Emergency Medicine; PCP Internal Medicine; Visit Provider Emergency Medicine
DX: R11.10 Vomiting, unspecified (principal); I10 Essential (primary) hypertension; K21.9 Gastro-esophageal reflux disease without esophagitis; F17.290 Nicotine dependence, other tobacco product, uncomplicated; Z79.899 Other long term (current) drug therapy
CPT/HCPCS: 74176; 80053; 83605; 83690; 85025; 87426; 96374; 99283; C9803; A4216; J2405

== ENCOUNTER 2022-10-13 12:54 | Emergency (ER) | payer MEDICAID, SELFPAY ==
[2022-10-13 12:55] VITALS: BP 135/94; PULSE 87; RESP 18; TEMP 35.4; O2SAT 100; BMI 25.7
--- NOTE | 2022-10-13 13:26 | RAD_ITS ---
INDICATION: trauma EXAMINATION/TECHNIQUE: X-RAY - LEFT HAND XR Fingers Min 2 Views 3 VIEWS COMPARISON: None. FINDINGS: SOFT TISSUES: Soft tissue swelling near the nailbed. No radiopaque foreign body. BONES/JOINTS: No acute fracture or subluxation.. Normal alignment. Preservation of the joint space.. No sclerotic or destructive changes observed. RAD/Finger(s) Min 2 Views IMPRESSION: Negative. Electronically Signed: Leonel Phipps MD at 14:01 EDT ,
--- NOTE | 2022-10-13 13:27 | EX.ED.UPPERE ---
HPI History of Present Illness Chief Complaint: Upper Extremity Injury Narrative Narrative: 26-year-old male past medical history of hypertension, [id number], states he was helping his father remove roots over his grandfather's house. His left hand was too close to where they were using a spud bar, when the spud bar came down on his left middle finger. He believes his tetanus immunization is up-to-date, within the last 5 years. He denies other injury but is having a large amount of pain in the tip of his left middle finger/third digit. Tetanus Immunization: <5 years PFSH PFSH Medical History Anxiety Back problem Gastric reflux GERD (gastroesophageal reflux disease) History of kidney stones Hypertension Injury of head and neck Loss of consciousness Migraine headache Scoliosis Seasonal allergies Smoker Home Medications ondansetron 4 mg disintegrating tablet 4 mg PO Q8H PRN PRN Nausea #10 tabs 02/27/21 [Rx Last Taken Unknown] amlodipine 10 mg tablet 10 mg PO DAILY #90 tabs 05/29/22 [Rx Last Taken Unknown] sertraline 100 mg tablet (Zoloft) 100 mg PO DAILY #90 tabs 05/29/22 [Rx Last Taken Unknown] montelukast 10 mg tablet 10 mg PO DAILY PRN allergic symptoms 10/13/22 [History Last Taken Unknown] Allergy/AdvReac Type Severity Reaction Status Date / Time latex Allergy Rash Verified 10/13/22 12:57 Family History Uncle Diabetes Grandmother Diabetes Myocardial infarction, Onset Age: 58 Mother Kidney disease Other Anxiety Arthritis Hypertension Surgical History History of endoscopy Social History household members: family current occupational status: employed Smoking Status: Current some day smoker tobacco type: e-cigarettes Tobacco: How many years used: 8 alcohol intake: current alcohol intake frequency: a few times a month Alcohol type: beer substance use type: does not use what type of physical activity do you participate in: none ROS ROS ED ROS Narrative Constitutional: No fever, no chills. HEENT: No sore throat. No neck pain. No loss of vision. No rhinorrhea. Cardiovascular: No chest pain. No palpitations. No pedal edema. Respiratory: No cough, no shortness of breath. Abdominal: No abdominal pain. No nausea. No vomiting. Genitourinary: No dysuria. No hematuria. Musculoskeletal: No myalgias. Pain, throbbing to left middle fingertip. Neurologic: No headaches. No dizziness. No lightheadedness. Skin: No rash. No change in color. Psychiatric: No depression. No anxiety. EXAM Physical Exam Narrative Exam Narrative: Afebrile. Vital signs noted. HEENT: Normocephalic. Atraumatic. PERRL, EOMI. Neck soft and supple. No point tenderness or step off. Cardiovascular: Regular rate and rhythm. No murmurs, rubs, or gallops appreciated. Respiratory: No tachypnea. Lungs clear to auscultation bilaterally. Gastrointestinal: Abdomen soft, nontender, with normoactive bowel sounds. No rebound or guarding. Neurological: Awake. Alert. Nonfocal, nonlateralizing. Skin: No rash. Normal color. No pallor. Musculoskeletal: No pedal edema. Full range of motion extremities. Able to flex left middle finger at PIP and DIP. Positive avulsion of nail at the base/cuticle, no active bleeding. Const Vital Signs: 10/13/22 12:55 Temperature 95.7 F L Temperature Source Temporal Pulse Rate 87 Respiratory Rate 18 Blood Pressure 135/94 H Blood Pressure Mean 107 Pulse Ox 100 Oxygen Delivery Method Room Air MDM MDM MDM Narrative Medical decision making narrative: Patient will soak his finger as concern would be for fracture and partial nail avulsion. He was told that he may lose the nail, or it may not grow back at all. As far as the laceration, he would like it to heal by secondary intent and wants to avoid suturing. His finger will be soaked and x-rays will be obtained to help rule out fracture of the tip of the left middle finger. He was given a Irving tablet for analgesia. X-rays of the left third digit were obtained and interpreted by myself independently which shows no evidence of fracture. There is evidence of the partial nail avulsion at the germinal matrix/cuticle area. I reviewed the radiology report which confirms my independent interpretation of no fracture. Upon repeat evaluation, there is a very thin layer of skin on the flap-like laceration at the base of the fingernail. There is no active bleeding. He does have a subungual hematoma where the nail has been partially avulsed. I had a lengthy discussion with the patient. I do not feel that given the thin skin and small area that it is amenable to suturing. He would like to have it heal by secondary intent. He was told that he may lose the nail completely, or it may regrow discolored and/or irregular. He acknowledges an understanding. After soaking and cleansing, Vaseline gauze dressing will be applied and sterile dressing. He will be placed in aluminum foam splint and let the area heal by secondary intent. He will have the wound checked by his primary care provider in the next few days. He was given a note to be off work for the next 2 days. I do not feel he requires narcotic pain medication currently for home use and he will take [id number] analgesics and continue elevation of his hand when possible. Return instructions to the emergency department were reviewed. Disposition is discharged home in stable condition. Discharge Plan Triage Chief Complaint: Upper Extremity Injury ED Provider: Zak Erwin Dx/Rx/DC Orders Clinical Impression: Fingertip contusion, Fingernail avulsion, partial Instructions: ED Finger Contusion, ED Detached Fingernail or Toenail Prescriptions: No Action amlodipine 10 mg tablet 10 mg PO DAILY Qty: 90 3RF sertraline [Zoloft] 100 mg tablet 100 mg PO DAILY Qty: 90 3RF ondansetron [ondansetron] 4 MG tablet 4 mg PO Q8H PRN PRN (Reason: Nausea) Qty: 10 0RF montelukast 10 mg tablet 10 mg PO DAILY PRN (Reason: allergic symptoms) Patient Comments: TAKE 1 TABLET BY MOUTH EVERY DAY AT NIGHT; Allergy season Stand Alone Forms: ED Work / School Excuse Primary Care Provider: Yolanda Lin Referrals: Yolanda Lin MD [Primary Care Provider] - 2 Days for wound check
[2022-10-13] MEDS: HYDROcodone Bitartrate/Apap 5/325 Tablet PO (13:31)
== END 2022-10-13 15:09 | disposition home or self-care (01) ==
PROVIDERS: Emergency Provider Emergency Medicine; PCP Internal Medicine; Visit Provider Emergency Medicine
DX: S61.303A Unspecified open wound of left middle finger with damage to nail, initial encounter (principal); I10 Essential (primary) hypertension; F17.290 Nicotine dependence, other tobacco product, uncomplicated; F41.9 Anxiety disorder, unspecified; Z79.899 Other long term (current) drug therapy
CPT/HCPCS: 73140; 99284